=== PATIENT | male | born 1975 | race Caucasian/White ===

== ENCOUNTER 2017-07-27 07:18 | Emergency (ER) | payer BC ==
[2017-07-27] MEDS ORDERED: Ibuprofen 800 MG Tab PO ONE (07:35)
--- NOTE | 2017-07-27 07:35 | EDM.PDOC ---
ED HPI GENERAL MEDICAL PROBLEM - General Stated Complaint: LEFT ANKLE PAIN Time Seen by Provider: 07/27/17 07:24 Source of Information: Reports: Patient History Limitations: Reports: No Limitations - History of Present Illness INITIAL COMMENTS - FREE TEXT/NARRATIVE: History of present illness: []Patient rolled his ankle last night on the ice. He has swelling and pain over the lateral ankle and has pain with bearing any weight on it. Review of systems: As per history of present illness and below otherwise all systems reviewed and negative. Past medical history: As per history of present illness and as reviewed below otherwise noncontributory. Surgical history: As per history of present illness and as reviewed below otherwise noncontributory. Social history: No reported history of drug or alcohol abuse. Family history: As per history of present illness and as reviewed below otherwise noncontributory. Physical exam: General: Well developed, well nourished in NAD HEENT: Atraumatic, normocephalic, pupils reactive, negative for conjunctival pallor or scleral icterus, mucous membranes moist, throat clear, neck supple, nontender, trachea midline. Lungs: Clear to auscultation, breath sounds equal bilaterally, chest nontender. Heart: S1S2, regular, negative for clicks, rubs, or JVD. Abdomen: Soft, nondistended, nontender. Negative for masses or hepatosplenomegaly. Negative for costovertebral tenderness. Pelvis: Stable nontender. Genitourinary: Deferred. Rectal: Deferred. Extremities: Lateral malleolar swelling over the left ankle tender to light palpation of the skin. There is no open wound, negative for cords or calf pain. Neurovascular unremarkable. Neuro: Awake, alert, oriented. Cranial nerves II through XII unremarkable. Cerebellum unremarkable. Motor and sensory unremarkable throughout. Exam nonfocal. Diagnostics: []X-ray negative for fracture Therapeutics: []Motrin for pain, Aircast Impression: []Left ankle sprain Plan: []Ice elevate follow-up with PMD return if symptoms worsen Definitive disposition and diagnosis as appropriate pending reevaluation and review of above. Left Ankle Pain Score (Numeric/FACES): 3 - Related Data Allergies Allergy/AdvReac Type Severity Reaction Status Date / Time No Known Allergies Allergy Verified 07/27/17 07:31 Home Meds: Home Meds . [No Known Home Meds] 12/23/14 [History] Past Medical History - Infectious Disease History Infectious Disease History: Reports: Chicken Pox - Past Surgical History HEENT Surgical History: Reports: Naso-Sinus Surgery, Tonsillectomy Social & Family History - Family History Family Medical History: Noncontributory - Tobacco Use Smoking Status *Q: Never Smoker - Alcohol Use Days Per Week of Alcohol Use: 2 Number of Drinks Per Day: 7 Total Drinks Per Week: 14 - Recreational Drug Use Recreational Drug Use: No Drug Use in Last 12 Months: No Review of Systems - Review of Systems Review Of Systems: See Below (See history of present illness) ED EXAM, GENERAL - Physical Exam Exam: See Below (See history of present illness) Course - Vital Signs Last Recorded V/S: Last Vital Signs Temp 97.3 F 07/27/17 07:29 Pulse 90 07/27/17 07:29 Resp 18 07/27/17 07:29 BP 125/90 07/27/17 07:29 Pulse Ox 93 L 07/27/17 07:29 - Orders/Labs/Meds Orders: Active Orders 24 hr Category Date Time Status Ankle Min 3V Lt [CR] Stat Exams 07/27/17 07:35 Taken Meds: Medications Discontinued Medications Generic Name Dose Route Start Last Admin Trade Name Freq PRN Reason Stop Dose Admin Ibuprofen 800 mg 07/27/17 07:35 07/27/17 07:39 Motrin PO 07/27/17 07:36 800 mg ONETIME ONE Administration Departure - Departure Time of Disposition: 08:04 Disposition: Home, Self-Care 01 Condition: Good Clinical Impression: Left ankle sprain Qualifiers: Encounter type: initial encounter Involved ligament of ankle: unspecified ligament Qualified Code(s): S93.402A - Sprain of unspecified ligament of left ankle, initial encounter - Discharge Information Referrals: PCP,None [Primary Care Provider] - Additional Instructions: The following information is given to patients seen in the emergency department who are being discharged to home. This information is to outline your options for follow-up care. We provide all patients seen in our emergency department with a follow-up referral. The need for follow-up, as well as the timing and circumstances, are variable depending upon the specifics of your emergency department visit. If you don't have a primary care physician on staff, we will provide you with a referral. We always advise you to contact your personal physician following an emergency department visit to inform them of the circumstance of the visit and for follow-up with them and/or the need for any referrals to a consulting specialist. The emergency department will also refer you to a specialist when appropriate. This referral assures that you have the opportunity for follow-up care with a specialist. All of these measure are taken in an effort to provide you with optimal care, which includes your follow-up. Under all circumstances we always encourage you to contact your private physician who remains a resource for coordinating your care. When calling for follow-up care, please make the office aware that this follow-up is from your recent emergency room visit. If for any reason you are refused follow-up, please contact the Emergency Department at and asked to speak to the emergency department charge nurse. Ice, elevate, ibuprofen for pain, follow-up with primary care as needed return symptoms worsen or change. Primary Care [address] [place] [id number] - My Orders Last 24 Hours: My Active Orders 07/27/17 07:35 Ankle Min 3V Lt [CR] Stat - Assessment/Plan Last 24 Hours: My Active Orders 07/27/17 07:35 Ankle Min 3V Lt [CR] Stat
[2017-07-27 08:29] VITALS: BP 126/78
--- NOTE | 2017-07-27 13:35 | CR ---
EXAM DATE: 07/27/17 PATIENT'S AGE: 42 Patient: OCTAVIO DSOUZA Facility: [place], [place] Site . Site : 1975 Study: XRay Extremity Left ANKLE [id number]/6/2017 8:02:46 AM Ordering Physician: Davon Marsh Final Report: HISTORY: Left ankle pain. TECHNIQUE: Three views of the left ankle. COMPARISON: No prior. FINDINGS: There is no acute fracture or malalignment. Ankle mortise appears symmetric and maintained. Soft tissue swelling overlying the lateral malleolus. No radiopaque foreign body or soft tissue gas. IMPRESSION: 1. No acute fracture or malalignment. 2. Soft tissue swelling overlying the lateral malleolus. Dictated by Joseph Donis MD @ 07/27/2017 8:09:13 AM Dictated by: Joseph Donis MD @ 07/27/2017 08:09:19 (Electronic Signature) Report Signed by Proxy. YAW
== END 2017-07-27 08:28 | disposition home or self-care (01) ==
LOC: MW.ED 07:18
DX: S93.402A Sprain of unspecified ligament of left ankle, initial encounter (principal); X50.9XXA Other and unspecified overexertion or strenuous movements or postures, initial encounter
CPT/HCPCS: 73610; 99283; A9270

== ENCOUNTER 2017-11-03 19:32 | Day surgery (SDC) | payer BC ==
[2017-11-03] MEDS ORDERED: Glucagon,Human Recombinant 1 MG Vial IVPUSH ONE (19:44)
--- NOTE | 2017-11-03 19:49 | EDM.PDOC ---
ED HPI GENERAL MEDICAL PROBLEM - General Chief Complaint: ENT Problem Stated Complaint: FOOD STUCK IN THROAT Time Seen by Provider: 11/03/17 19:45 Source of Information: Reports: Patient History Limitations: Reports: No Limitations - History of Present Illness INITIAL COMMENTS - FREE TEXT/NARRATIVE: HISTORY AND PHYSICAL: History of present illness: Patient is a 42-year-old male who presents to the emergency room today with complaints of meat stuck in his throat. He states he has eating roast beef approximately one hour prior to arrival when he felt that he was unable to "get it down". He has had a similar episode of food bolus stuck in his esophagus which she had to have an EGD done, several years ago by Dr. Mooney. States since that time he has had frequent episodes but is usually able to get them down on his own. He states he is unable to swallow any liquids nor his saliva. Denies any difficulty breathing. Denies fever, chills, chest pain, shortness of breath. Denies any abdominal pain, nausea, vomiting or diarrhea/constipation. Review of systems: As per history of present illness and below otherwise all systems reviewed and negative. Past medical history: As per history of present illness and as reviewed below otherwise noncontributory. Surgical history: As per history of present illness and as reviewed below otherwise noncontributory. Social history: No reported history of drug or alcohol abuse. Family history: As per history of present illness and as reviewed below otherwise noncontributory. Physical exam: Gen.: Well-developed and well-nourished 42-year-old male. Alert and oriented. Nontoxic appearing and in no acute distress. HEENT: Atraumatic, normocephalic, pupils reactive, negative for conjunctival pallor or scleral icterus, mucous membranes moist, throat clear, neck supple, nontender, trachea midline. Lungs: Clear to auscultation, breath sounds equal bilaterally, chest nontender. No work of breathing. Heart: S1S2, regular rate and rhythm Abdomen: Soft, nondistended, nontender. Negative for masses or hepatosplenomegaly. Negative for costovertebral tenderness. Pelvis: Stable nontender. Genitourinary: Deferred. Rectal: Deferred. Extremities: Atraumatic, negative for cords or calf pain. Neurovascular unremarkable. Neuro: Awake, alert, oriented. Cranial nerves II through XII unremarkable. Cerebellum unremarkable. Motor and sensory unremarkable throughout. Exam nonfocal. While doing my physical examination the patient does have an emesis bag at his side which she is spitting his saliva into. He states he is unable to swallow his oral secretions. Apprehensive about using the IV glucagon because he states this "didn't work in the past". I did educate him on the steps needed prior to calling the general surgeon. He voices understanding and is agreeable to plan of care. His vital signs are stable and we'll continue to monitor. Patient is unable to swallow liquids or saliva post IV glucagon. The general surgeon will be called. 2024- Dr Fletcher was consulted on this case. Will come to see the patient Dr Fletcher here with patient. Crew called in for EGD. Diagnostics: [] Therapeutics: Glucogan IV Impression: Esophageal foreign body Plan: To OR for EGD per Dr Fletcher Definitive disposition and diagnosis as appropriate pending reevaluation and review of above. Onset: Today Duration: Hour(s): - Related Data Allergies Allergy/AdvReac Type Severity Reaction Status Date / Time No Known Allergies Allergy Verified 11/03/17 19:35 Home Meds: Home Meds . [No Known Home Meds] 12/23/14 [History] Past Medical History - Past Health History Medical/Surgical History: Denies Medical/Surgical History Cardiovascular History: Reports: Hypertension - Infectious Disease History Infectious Disease History: Reports: Chicken Pox - Past Surgical History HEENT Surgical History: Reports: Naso-Sinus Surgery, Tonsillectomy Social & Family History - Family History Family Medical History: Noncontributory - Tobacco Use Smoking Status *Q: Never Smoker - Alcohol Use Days Per Week of Alcohol Use: 2 Number of Drinks Per Day: 7 Total Drinks Per Week: 14 - Recreational Drug Use Recreational Drug Use: No Drug Use in Last 12 Months: No ED ROS ENT - Review of Systems Review Of Systems: ROS reveals no pertinent complaints other than HPI. ED EXAM, ENT - Physical Exam Exam: See Below (See dictation) Course - Vital Signs Last Recorded V/S: Last Vital Signs Temp 98.7 F 11/03/17 19:35 Pulse 75 11/03/17 19:35 Resp 20 11/03/17 19:35 BP 157/109 H 11/03/17 19:35 Pulse Ox 96 11/03/17 19:35 - Orders/Labs/Meds Orders: Active Orders 24 hr Category Date Time Status Communication Order [RC] STAT Care 11/03/17 20:17 Active Meds: Medications Discontinued Medications Generic Name Dose Route Start Last Admin Trade Name Tito PRN Reason Stop Dose Admin Glucagon 1 mg 11/03/17 19:44 11/03/17 20:02 Glucagen IVPUSH 11/03/17 19:45 1 mg ONETIME ONE Administration Departure - Departure Time of Disposition: 20:47 Disposition: Still A Patient 30 Clinical Impression: Esophageal foreign body Qualifiers: Encounter type: initial encounter Qualified Code(s): T18.108A - Unspecified foreign body in esophagus causing other injury, initial encounter - Discharge Information Referrals: PCP,Unknown [Primary Care Provider] - Forms: ED Department Discharge - My Orders Last 24 Hours: My Active Orders 11/03/17 20:17 Communication Order [RC] STAT - Assessment/Plan Last 24 Hours: My Active Orders 11/03/17 20:17 Communication Order [RC] STAT
--- NOTE | 2017-11-03 20:59 | PCM.HP ---
<Jamison Marino - Last Filed: 11/03/17 20:54> H&P History of Present Illness - General Date of Service: 11/03/17 Admit Problem/Dx: Esophageal foreign body Source of Information: Patient - History of Present Illness Initial Comments - Free Text/Narative: 42 y/o male presents to ED with esophageal foreign body. He was eating roast beef this evening and felt the sensation of it getting stuck. He presented to ED for this issue. He has a history of EGD for esophageal foreign body about 2 years ago. He has no other issues or concerns. Onset of Symptoms: Reports: Today Duration of Symptoms: Reports: Hour(s): - Related Data Allergies/Adverse Reactions: Allergies Allergy/AdvReac Type Severity Reaction Status Date / Time No Known Allergies Allergy Verified 11/03/17 19:35 Home Medications: Home Meds . [No Known Home Meds] 12/23/14 [History] Past Medical History - Past Health History Medical/Surgical History: Denies Medical/Surgical History Cardiovascular History: Reports: Hypertension Gastrointestinal History: Reports: Other (See Below) (history of esophageal foreign body a few years ago) - Infectious Disease History Infectious Disease History: Reports: Chicken Pox - Past Surgical History Head Surgeries/Procedures: Reports: Other (See Below) Other Head Surgeries/Procedures: tonsillectomy HEENT Surgical History: Reports: Naso-Sinus Surgery, Tonsillectomy Social & Family History - Family History Family Medical History: Noncontributory (grandfather had history of food obstruction of esophagus) - Tobacco Use Smoking Status *Q: Never Smoker - Alcohol Use Days Per Week of Alcohol Use: 2 Number of Drinks Per Day: 7 Total Drinks Per Week: 14 - Recreational Drug Use Recreational Drug Use: No Drug Use in Last 12 Months: No H&P Review of Systems - Review of Systems: Review Of Systems: See Below General: Reports: No Symptoms HEENT: Reports: No Symptoms Pulmonary: Reports: No Symptoms Cardiovascular: Reports: No Symptoms Gastrointestinal: Reports: Difficulty Swallowing Genitourinary: Reports: No Symptoms Musculoskeletal: Reports: No Symptoms Skin: Reports: No Symptoms Psychiatric: Reports: No Symptoms Neurological: Reports: No Symptoms Hematologic/Lymphatic: Reports: No Symptoms Immunologic: Reports: No Symptoms Exam - Exam Exam: See Below - Vital Signs Vital Signs: Last Vital Signs Temp 37.1 C 11/03/17 19:35 Pulse 75 11/03/17 19:35 Resp 20 11/03/17 19:35 BP 157/109 H 11/03/17 19:35 Pulse Ox 96 11/03/17 19:35 Weight: 440 lb 14.792 oz - Exam General: Alert, Oriented, Cooperative HEENT: EOMI Neck: Supple, Trachea Midline Lungs: Clear to Auscultation, Normal Respiratory Effort Cardiovascular: Regular Rate, Regular Rhythm GI/Abdominal Exam: Soft, Non-Tender, No Distention, No Mass Extremities: Normal Inspection Skin: Warm, Dry Neurological: Cranial Nerves Intact Neuro Extensive - Mental Status: Alert, Oriented x3, Normal Mood/Affect, Normal Cognition, Memory Intact Psychiatric: Alert, Normal Affect, Normal Mood *Q Meaningful Use (ADM) - VTE *Q VTE Criteria *Q: - Stroke *Q Stroke Criteria *Q: - AMI *Q AMI Criteria *Q: - Problem List (1) Esophageal foreign body SNOMED Code(s): 23155167 ICD Code: T18.108A - UNSP FOREIGN BODY IN ESOPHAGUS CAUSING OTH INJURY, INIT Status: Acute Priority: High Current Visit: Yes QualifierTitle: Encounter type: initial encounter Qualified Code(s): T18.108A - Unspecified foreign body in esophagus causing other injury, initial encounter Problem List Initiated/Reviewed/Updated: Yes Orders Last 24hrs: Active Orders 24 hr Category Date Time Status Communication Order [RC] STAT Care 11/03/17 20:17 Active Assessment/Plan Comment:: Risks, benefits, alternatives discussed. He has already failed trial of conservative mgmt with glucagon. Recommend EGD with all indicated procedures to attempt to alleviate the obstruction. Risks of bleeding and perforation discussed. <Mikel Fletcher - Last Filed: 11/03/17 21:06> Exam - Vital Signs Vital Signs: Last Vital Signs Temp 98.7 F 11/03/17 19:35 Pulse 75 11/03/17 19:35 Resp 20 11/03/17 19:35 BP 157/109 H 11/03/17 19:35 Pulse Ox 96 11/03/17 19:35 *Q Meaningful Use (ADM) - VTE *Q VTE Criteria *Q: - Stroke *Q Stroke Criteria *Q: - AMI *Q AMI Criteria *Q: - Problem List (1) Esophageal foreign body SNOMED Code(s): 31180172 ICD Code: T18.108A - UNSP FOREIGN BODY IN ESOPHAGUS CAUSING OTH INJURY, INIT Status: Acute Priority: High Current Visit: Yes Qualifiers: Encounter type: initial encounter Qualified Code(s): T18.108A - Unspecified foreign body in esophagus causing other injury, initial encounter Problem List Initiated/Reviewed/Updated: Yes Orders Last 24hrs: Active Orders 24 hr Category Date Time Status Communication Order [RC] STAT Care 11/03/17 20:17 Active Oxygen Therapy [RC] PRN Care 11/03/17 20:54 Active Vital Signs [RC] PER UNIT ROUTINE Care 11/03/17 20:54 Active Nothing per Oral After Midnight Diet [DIET] Diet 11/03/17 Dinner Active Lactated Ringers [Ringers, Lactated] 1,000 ml Med 11/03/17 21:00 Active IV ASDIRECTED Resuscitation Status Routine Resus Stat 11/03/17 20:53 Ordered Medication Orders Lactated Ringer's (Ringers, Lactated) 1,000 mls @ 125 mls/hr IV ASDIRECTED JOSHUA Assessment/Plan Comment:: Esophagogastroduodenoscopy with removal of esophageal foreign body and biopsy. The operative procedure, along with the risks, including, but not limited to, bleeding, perforation, and the need for surgery were discussed with the patient who voices understanding, offers no questions and wishes to proceed. Patient seen and examined with Dr. Marino. I agree with his assessment and plan.
[2017-11-03] MEDS ORDERED: Lactated Ringers 1,000 ML IV SCH ×2 (21:00→21:45)
--- NOTE | 2017-11-03 21:08 | PCM.PREANE ---
Preanesthetic Assessment - Anesthesia/Transfusion/Family Hx Anesthesia History: Prior Anesthesia Without Reaction Family History of Anesthesia Reaction: No Transfusion History: No Prior Transfusion(s) Intubation History: History of Difficulty Intubation - Review of Systems General: No Symptoms Pulmonary: No Symptoms Cardiovascular: No Symptoms Gastrointestinal: No Symptoms, Difficulty Swallowing, Other Neurological: No Symptoms Other: Reports: None - Physical Assessment NPO Status Date: 11/03/17 NPO Status Time: 07:00 O2 Sat by Pulse Oximetry: 96 Respiratory Rate: 20 Blood Pressure: 138/80 Vital Signs: Last Vital Signs Temp 37.1 C 11/03/17 19:35 Pulse 75 11/03/17 19:35 Resp 20 11/03/17 19:35 BP 157/109 H 11/03/17 19:35 Pulse Ox 96 11/03/17 19:35 Height: 1.73 m Weight: 200 kg ASA Class: 2E Mental Status: Alert & Oriented x3 Airway Class: Mallampati = 1 Dentition: Reports: Normal Dentition Thyro-Mental Finger Breadths: 4 Mouth Opening Finger Breadths: 3 ROM/Head Extension: Full Lungs: Clear to Auscultation Cardiovascular: Regular Rate - Allergies Allergies/Adverse Reactions: Allergies Allergy/AdvReac Type Severity Reaction Status Date / Time No Known Allergies Allergy Verified 11/03/17 19:35 - Blood Blood Available: No - Acknowledgements Anesthesia Type Planned: General Anesthesia Pt an Appropriate Candidate for the Planned Anesthesia: Yes Alternatives and Risks of Anesthesia Discussed w Pt/Guardian: Yes Pt/Guardian Understands and Agrees with Anesthesia Plan: Yes Additional Comments: Pt with stuck food bolus in esophgus. Same ~ 2 years ago. Discussed. All aspects explained, questions answered. Wishes to procede. Plan GAET with RSI PreAnesthesia Questionnaire - Past Health History Medical/Surgical History: Denies Medical/Surgical History Cardiovascular History: Reports: Hypertension Gastrointestinal History: Reports: Other (See Below) (history of esophageal foreign body a few years ago) - Infectious Disease History Infectious Disease History: Reports: Chicken Pox - Past Surgical History Head Surgeries/Procedures: Reports: Other (See Below) HEENT Surgical History: Reports: Naso-Sinus Surgery, Tonsillectomy - SUBSTANCE USE Smoking Status *Q: Never Smoker Days Per Week of Alcohol Use: 2 Number of Drinks Per Day: 7 Total Drinks Per Week: 14 Recreational Drug Use History: No - HOME MEDS Home Medications: Home Meds . [No Known Home Meds] 12/23/14 [History] - CURRENT (IN HOUSE) MEDS Current Meds: Current Medications Lactated Ringer's (Ringers, Lactated) 1,000 mls @ 125 mls/hr IV ASDIRECTED JOSHUA Discontinued Medications Glucagon (Glucagen) 1 mg IVPUSH ONETIME ONE Stop: 11/03/17 19:45 Last Admin: 11/03/17 20:02 Dose: 1 mg
[2017-11-03] MEDS ORDERED: Ondansetron 4 MG/2 ML SDV ONE (21:10)
[2017-11-03] MEDS ORDERED: Propofol 200 MG/20 ML SDV ONE (21:10)
[2017-11-03] MEDS ORDERED: Midazolam 1 MG/ML 2 ML SDV ONE (21:10)
[2017-11-03] MEDS ORDERED: fentaNYL 100 MCG/2 ML SDV ONE (21:10)
[2017-11-03] MEDS ORDERED: Ondansetron 4 MG Tab.DIS PO PRN (21:42)
--- NOTE | 2017-11-03 21:51 | PCM.OPNOTE ---
- General Post-Op/Procedure Note Date of Surgery/Procedure: 11/03/17 Operative Procedure(s): Esophagogastroduodenoscopy with removal of esophageal foreign body, and gastric biopsy Pre Op Diagnosis: Foreign body obstruction of the esophagus Post-Op Diagnosis: Foreign body obstruction of the esophagus. Mild chronic gastritis. Anesthesia Technique: General ET Tube (ASA IIE) Primary Surgeon: Mikel Fletcher Wastewater Supervisor: Jamison Marino Condition: Good Free Text/Narrative:: Dictation [id number] CPT CODE [id number]
--- NOTE | 2017-11-03 22:12 | PCM.POSTAN ---
POST ANESTHESIA ASSESSMENT - MENTAL STATUS Mental Status: Alert, Oriented - VITAL SIGNS Pulse Rate: 74 SaO2: 92 Resp Rate: 17 Blood Pressure: 121/87 Temperature: 97 C - RESPIRATORY Respiratory Status: Respiratory Rate WNL, Airway Patent, O2 Saturation Stable, Supplemental Oxygen Free Text/Narrative:: Sats 92-95% on 2L Doing well no problems noted - CARDIOVASCULAR CV Status: Pulse Rate WNL, Blood Pressure Stable - GASTROINTESTINAL GI Status: No Symptoms - PAIN Pain Score: 0 Free Text/Narrative:: Ready for discharge from PACU - POST OP HYDRATION Hydration Status: Adequate & Stable
--- NOTE | 2017-11-03 22:22 | PCM48HPAN ---
Post Anesthesia Note - EVALUATION WITHIN 48HRS OF ANESTHETIC Vital Signs in Normal Range: Yes Patient Participated in Evaluation: Yes Respiratory Function Stable: Yes Airway Patent: Yes (Throat sore) Cardiovascular Function Stable: Yes Hydration Status Stable: Yes Pain Control Satisfactory: Yes Nausea and Vomiting Control Satisfactory: Yes Mental Status Recovered: Yes Pulse Rate: 74 Resp Rate: 17 Temperature: 97 C Blood Pressure: 121/87 - COMMENTS/OBSERVATIONS Free Text/Narrative:: Good condition. Awaiting discharge.
[2017-11-03 22:58] VITALS: BP 123/79
--- NOTE | 2017-11-04 00:52 | OR ---
SURGEON: Mikel Fletcher M.D. DATE OF PROCEDURE: 11/03/2017 OPERATION PERFORMED: Esophagogastroduodenoscopy with removal of esophageal foreign body and gastric biopsy. COLLAR TACKER: Dr. Marino, PGY3. ANESTHESIA: General endotracheal. ASA CLASSIFICATION: IIE. PREOPERATIVE DIAGNOSIS: Foreign body obstruction of the esophagus. POSTOPERATIVE DIAGNOSES: 1. Foreign body obstruction of the esophagus. 2. Mild gastritis. DESCRIPTION OF PROCEDURE: The patient was taken to the operating room and placed on the operating table in supine position. Time-out was called for appropriate identification of the patient and procedure. Following satisfactory attainment of general endotracheal anesthesia, the bite-block was placed between the patient's teeth. The gastroscope was inserted through the bite-block into the oropharynx and advanced without difficulty into the esophagus. I was able to push the foreign body through the esophagus without any difficulty. The gastroscope was then further inserted through the stomach into the duodenum and examination now carried out in a retrograde fashion. The duodenum shows no acute inflammatory changes or ulcerations. The stomach does show a mild appearing chronic gastritis. No acute ulcerations were noted. Antral biopsies were obtained. The gastroscope was retroflexed to visualize the proximal stomach. The foreign body could clearly be seen in the stomach. No obvious hiatal hernia was noted. No tumors or ulcers were noted in the cardia. The gastroscope was then straightened and slowly withdrawn. There was an area of inflammation in the distal esophagus just above the esophageal hiatus that is quite erythematous. There was no obvious resistance to passage of the scope as it was inserted. No obvious stricture noted. The proximal esophagus demonstrated good contractility. Vocal cords were not visualized as the patient was intubated. The gastroscope was then removed with the patient having tolerated the procedure well. Following emergence from anesthesia and extubation, he was taken to recovery room in stable condition. AILIN / CARLOS /[id number]
== END 2017-11-03 22:45 | disposition home or self-care (01) ==
LOC: MW.ED 19:32 → MW.SDS 20:55 → MW.MS 21:55 → MW.SDS 22:45
PROVIDERS: ATTEND Surgery
DX: K29.50 Unspecified chronic gastritis without bleeding (principal); T18.128A Food in esophagus causing other injury, initial encounter; I10 Essential (primary) hypertension
CPT/HCPCS: 43239; 43247; 96374; 99284; J1610; J2250; J2405; J3010; 00731; 88305; 88312; J2704

== ENCOUNTER 2017-12-25 17:51 | Emergency (ER) | payer BC ==
[2017-12-25] MEDS ORDERED: Ondansetron 4 MG/2 ML SDV IVPUSH ONE (17:55)
[2017-12-25] MEDS ORDERED: Aspirin 81 MG Tab.Chew PO ONE (17:55)
[2017-12-25] MEDS ORDERED: Sodium Chloride 0.9% 1,000 ML IV ONE (17:55)
[2017-12-25] MEDS ORDERED: Pantoprazole 40 MG Vial IVPUSH ONE (17:59)
[2017-12-25] MEDS ORDERED: LORazepam 2 MG/ML SDV IVPUSH ONE (18:07)
--- NOTE | 2017-12-25 18:14 | EDM.PDOC ---
ED HPI GENERAL MEDICAL PROBLEM - General Chief Complaint: Chest Pain Stated Complaint: HEART ATTACK Time Seen by Provider: 12/25/17 18:11 Source of Information: Reports: Patient - History of Present Illness INITIAL COMMENTS - FREE TEXT/NARRATIVE: HISTORY AND PHYSICAL: History of present illness: [ Patient presents with a complaint of "heart attack" Today he was planting trees 10-12 trees 3 feet in height, he drilled holes with a bobcat abdomen was planting the trees lifting shoveling etc. developed acute sharp 8 out of 10 pain over left pack Below left chest no radiation arm neck or jaw no diaphoresis no shortness of breath. Pain is present for 10 minutes here per presents to the emergency room very anxious but pain has resolved I can reproduce pain with palpation just left of the lower sternum, patient states this is the pain that he was having can also reproduce pain with forward extension and lateral extension of his left arm No fever nausea vomiting chills sweats] Review of systems: As per history of present illness and below otherwise all systems reviewed and negative. Past medical history: As per history of present illness and as reviewed below otherwise noncontributory. Surgical history: As per history of present illness and as reviewed below otherwise noncontributory. Social history: No reported history of drug or alcohol abuse. Family history: As per history of present illness and as reviewed below otherwise noncontributory. Physical exam: HEENT: Atraumatic, normocephalic, pupils reactive, negative for conjunctival pallor or scleral icterus, mucous membranes moist, throat clear, neck supple, nontender, trachea midline. Lungs: Clear to auscultation, breath sounds equal bilaterally, chest nontender. Heart: S1S2, regular, negative for clicks, rubs, or JVD. Abdomen: Soft, nondistended, nontender. Negative for masses or hepatosplenomegaly. Negative for costovertebral tenderness. Pelvis: Stable nontender. Genitourinary: Deferred. Rectal: Deferred. Extremities: Atraumatic, negative for cords or calf pain. Neurovascular unremarkable. Neuro: Awake, alert, oriented. Cranial nerves II through XII unremarkable. Cerebellum unremarkable. Motor and sensory unremarkable throughout. Exam nonfocal. Diagnostics: [CBC CMP UA troponin lipase EKG on arrival]-sinus tachycardia 126 Chest 1 view EKG Therapeutics: [1 L normal saline bolus Proton X 80 mg IV Zofran 4 mg IV Ativan 1 milligram IV Aspirin 324 mg chewable ] Impression: [ reproducible chest wall pain Anxiety about health Mild dehydration] Definitive disposition and diagnosis as appropriate pending reevaluation and review of above. chest Pain Score (Numeric/FACES): 2 - Related Data Allergies Allergy/AdvReac Type Severity Reaction Status Date / Time No Known Allergies Allergy Verified 11/03/17 19:35 Home Meds: Home Meds . [No Known Home Meds] 12/23/14 [History] Past Medical History - Past Health History Medical/Surgical History: Denies Medical/Surgical History Cardiovascular History: Reports: Hypertension Gastrointestinal History: Reports: Other (See Below) (history of esophageal foreign body a few years ago) - Infectious Disease History Infectious Disease History: Reports: Chicken Pox - Past Surgical History Head Surgeries/Procedures: Reports: Other (See Below) HEENT Surgical History: Reports: Naso-Sinus Surgery, Tonsillectomy Social & Family History - Family History Family Medical History: Noncontributory (grandfather had history of food obstruction of esophagus) - Tobacco Use Smoking Status *Q: Never Smoker - Alcohol Use Days Per Week of Alcohol Use: 2 Number of Drinks Per Day: 7 Total Drinks Per Week: 14 - Recreational Drug Use Recreational Drug Use: No Drug Use in Last 12 Months: No ED ROS GENERAL - Review of Systems Review Of Systems: ROS reveals no pertinent complaints other than HPI. ED EXAM, GENERAL - Physical Exam Exam: See Below Course - Vital Signs Last Recorded V/S: Last Vital Signs Temp 98.7 F 12/25/17 18:02 Pulse 138 H 12/25/17 18:02 Resp 20 12/25/17 18:02 BP 160/93 H 12/25/17 18:02 Pulse Ox 96 12/25/17 18:02 - Orders/Labs/Meds Orders: Active Orders 24 hr Category Date Time Status EKG 12 Lead [EKG Documentation Completion] [RC] STAT Care 12/25/17 18:01 Active EKG Documentation Completion [RC] STAT Care 12/25/17 18:08 Active Chest 1V Frontal [CR] Stat Exams 12/25/17 17:59 Ordered CKMB [CHEM] Stat Lab 12/25/17 18:00 Received COMPREHENSIVE METABOLIC PN,CMP [CHEM] Stat Lab 12/25/17 18:00 Received CREATINE KINASE,CK [CHEM] Stat Lab 12/25/17 18:00 Received LIPASE [CHEM] Stat Lab 12/25/17 18:00 Received TROPONIN I [CHEM] Stat Lab 12/25/17 18:00 Received UA W/MICROSCOPIC [URIN] Stat Lab 12/25/17 17:55 Ordered Sodium Chloride 0.9% [Normal Saline] 1,000 ml Med 12/25/17 17:55 Active IV STAT Medication Orders Sodium Chloride (Normal Saline) 1,000 mls @ 999 mls/hr IV STAT ONE Stop: 12/25/17 18:55 Last Admin: 12/25/17 18:04 Dose: 999 mls/hr Labs: Laboratory Tests 12/25/17 Range/Units 18:00 WBC 10.87 (4.0-11.0) K/uL RBC 5.45 (4.50-5.90) M/uL Hgb 16.0 (13.0-17.0) g/dL Hct 46.1 (38.0-50.0) % MCV 84.6 (80.0-98.0) fL MCH 29.4 (27.0-32.0) pg MCHC 34.7 (31.0-37.0) g/dL RDW Std Deviation 40.5 (28.0-62.0) fl RDW Coeff of Ambar 13 (11.0-15.0) % Plt Count 304 (150-400) K/uL MPV 9.50 (7.40-12.00) fL Neut % (Auto) 50.1 (48.0-80.0) % Lymph % (Auto) 37.1 (16.0-40.0) % [place] % (Auto) 9.4 (0.0-15.0) % Eos % (Auto) 2.9 (0.0-7.0) % Baso % (Auto) 0.5 (0.0-1.5) % Neut # (Auto) 5.5 (1.4-5.7) K/uL Lymph # (Auto) 4.0 H (0.6-2.4) K/uL [place] # (Auto) 1.0 H (0.0-0.8) K/uL Eos # (Auto) 0.3 (0.0-0.7) K/uL Baso # (Auto) 0.1 (0.0-0.1) K/uL Nucleated RBC % 0.0 /100WBC Nucleated RBCs # 0 K/uL Meds: Medications Generic Name Dose Route Start Last Admin Trade Name Tito PRN Reason Stop Dose Admin Sodium Chloride 1,000 mls @ 999 mls/hr 12/25/17 17:55 12/25/17 18:04 Normal Saline IV 12/25/17 18:55 999 mls/hr STAT ONE Administration Discontinued Medications Generic Name Dose Route Start Last Admin Trade Name Tito PRN Reason Stop Dose Admin Aspirin 324 mg 12/25/17 17:55 12/25/17 18:16 Aspirin PO 12/25/17 17:56 324 mg ONETIME ONE Administration Lorazepam 1 mg 12/25/17 18:07 12/25/17 18:30 Ativan IVPUSH 12/25/17 18:08 1 mg ONETIME ONE Administration Ondansetron HCl 8 mg 12/25/17 17:55 12/25/17 18:17 Zofran IVPUSH 12/25/17 17:56 8 mg ONETIME ONE Administration Pantoprazole Sodium 80 mg 12/25/17 17:59 12/25/17 18:21 Protonix Iv IVPUSH 12/25/17 18:00 80 mg .BOLUS ONE Administration Departure - Departure Time of Disposition: 18:32 Disposition: Home, Self-Care 01 Condition: Good Clinical Impression: Chest wall pain, Anxiety about health, Dehydration - Discharge Information Forms: ED Department Discharge Additional Instructions: The following information is given to patients seen in the emergency department who are being discharged to home. This information is to outline your options for follow-up care. We provide all patients seen in our emergency department with a follow-up referral. The need for follow-up, as well as the timing and circumstances, are variable depending upon the specifics of your emergency department visit. If you don't have a primary care physician on staff, we will provide you with a referral. We always advise you to contact your personal physician following an emergency department visit to inform them of the circumstance of the visit and for follow-up with them and/or the need for any referrals to a consulting specialist. The emergency department will also refer you to a specialist when appropriate. This referral assures that you have the opportunity for follow-up care with a specialist. All of these measure are taken in an effort to provide you with optimal care, which includes your follow-up. Under all circumstances we always encourage you to contact your private physician who remains a resource for coordinating your care. When calling for follow-up care, please make the office aware that this follow-up is from your recent emergency room visit. If for any reason you are refused follow-up, please contact the [facility] emergency department at and asked to speak to the emergency department charge nurse. - My Orders Last 24 Hours: My Active Orders 12/25/17 17:55 UA W/MICROSCOPIC [URIN] Stat Sodium Chloride 0.9% [Normal Saline] 1,000 ml IV STAT 12/25/17 17:59 Chest 1V Frontal [CR] Stat 12/25/17 18:00 CKMB [CHEM] Stat COMPREHENSIVE METABOLIC PN,CMP [CHEM] Stat CREATINE KINASE,CK [CHEM] Stat LIPASE [CHEM] Stat TROPONIN I [CHEM] Stat 12/25/17 18:01 EKG 12 Lead [EKG Documentation Completion] [RC] STAT 12/25/17 18:08 EKG Documentation Completion [RC] STAT - Assessment/Plan Last 24 Hours: My Active Orders 12/25/17 17:55 UA W/MICROSCOPIC [URIN] Stat Sodium Chloride 0.9% [Normal Saline] 1,000 ml IV STAT 12/25/17 17:59 Chest 1V Frontal [CR] Stat 12/25/17 18:00 CKMB [CHEM] Stat COMPREHENSIVE METABOLIC PN,CMP [CHEM] Stat CREATINE KINASE,CK [CHEM] Stat LIPASE [CHEM] Stat TROPONIN I [CHEM] Stat 12/25/17 18:01 EKG 12 Lead [EKG Documentation Completion] [RC] STAT 12/25/17 18:08 EKG Documentation Completion [RC] STAT
[2017-12-25 18:37] LABS: CHLORIDE,CL 104 mmol/L (98-107); SODIUM,NA 141 mmol/L (136-148)
[2017-12-25 23:54] VITALS: BP 121/68
--- NOTE | 2017-12-26 13:36 | CR ---
EXAM DATE: 12/25/17 PATIENT'S AGE: 42 Patient: OCTAVIO DSOUZA Facility: [place], [place] Site . Site : 1975 Study: XRay Chest [id number]/6/2018 6:52:43 PM Ordering Physician: Doctor Liu Final Report: INDICATION: Pain. Shortness of breath. TECHNIQUE: AP portable chest x-ray. FINDINGS: Pulmonary vascularity in the upper lungs is upper limits of normal. Heart size normal. Shallow inspiration. Lungs clear without infiltrate or consolidation. Chest otherwise unremarkable. Dictated by Jonathan Lawrence MD @ Dec 25 2017 7:18PM (Electronic Signature) Report Signed by Proxy. YAW
== END 2017-12-25 19:50 | disposition home or self-care (01) ==
LOC: MW.ED 17:51
DX: R07.89 Other chest pain (principal); E86.0 Dehydration; F41.8 Other specified anxiety disorders; I10 Essential (primary) hypertension
CPT/HCPCS: 71045; 80053; 82550; 82553; 83690; 84484; 85025; 93005; 96361; 96374; 96375; 99285; A9270; C9113; J2060; J2405; J7040; 99284

== ENCOUNTER 2019-04-12 19:54 | Day surgery (SDC) | payer BC ==
[2019-04-12] MEDS ORDERED: Glucagon,Human Recombinant 1 MG Vial IVPUSH ONE (20:18)
--- NOTE | 2019-04-12 20:18 | EDM.PDOC ---
ED HPI GENERAL MEDICAL PROBLEM - General Chief Complaint: ENT Problem Stated Complaint: FOOD STUCK IN THROAT Time Seen by Provider: 04/12/19 20:17 Source of Information: Reports: Patient History Limitations: Reports: No Limitations - History of Present Illness INITIAL COMMENTS - FREE TEXT/NARRATIVE: HISTORY AND PHYSICAL: History of present illness: Patient is a 43-year-old male presents to the ED with complaint of food stuck in his throat. He states he was eating a steak for dinner tonight and piece in lodged in his throat. He has not been able to swallow anything since and is spitting his saliva. He can feel the food stuck and causing some discomfort. He has a history of this and has needed EGD for food bolus in the past. Review of systems: As per history of present illness and below otherwise all systems reviewed and negative. Past medical history: As per history of present illness and as reviewed below otherwise noncontributory. Surgical history: As per history of present illness and as reviewed below otherwise noncontributory. Social history: No reported history of drug or alcohol abuse. Family history: As per history of present illness and as reviewed below otherwise noncontributory. Physical exam: General: Patient sitting comfortably in no acute distress and nontoxic appearing HEENT: Atraumatic, normocephalic, pupils reactive, negative for conjunctival pallor or scleral icterus, mucous membranes moist, throat clear, neck supple, nontender, trachea midline. No meningeal signs. Lungs: Clear to auscultation, breath sounds equal bilaterally, chest nontender. Heart: S1S2, regular, negative for clicks, rubs, or overt murmur. Abdomen: Soft, nondistended, nontender. Negative for masses or hepatosplenomegaly. Negative for costovertebral tenderness. No rigidity, rebound , guarding. Pelvis: Stable nontender. Genitourinary: Deferred. Rectal: Deferred. Extremities: Atraumatic, negative for cords or calf pain. Neurovascular unremarkable. Neuro: Awake, alert, oriented. Cranial nerves II through XII unremarkable. Cerebellum unremarkable. Motor and sensory unremarkable throughout. Exam nonfocal. Notes: Diagnostics: CBC, CMP Therapeutics: [] Prescriptions: Impression: Esophageal food bolus Plan: Dr. Carlson consulted, she will take the patient to the OR for EGD. Definitive disposition and diagnosis as appropriate pending reevaluation and review of above. - Related Data Allergies Allergy/AdvReac Type Severity Reaction Status Date / Time No Known Allergies Allergy Verified 11/03/17 19:35 Home Meds: Home Meds . [No Known Home Meds] 12/23/14 [History] Past Medical History - Past Health History Medical/Surgical History: Denies Medical/Surgical History Cardiovascular History: Reports: Hypertension Gastrointestinal History: Reports: Other (See Below) - Infectious Disease History Infectious Disease History: Reports: Chicken Pox - Past Surgical History Head Surgeries/Procedures: Reports: Other (See Below) HEENT Surgical History: Reports: Naso-Sinus Surgery, Tonsillectomy Social & Family History - Family History Family Medical History: Noncontributory - Tobacco Use Smoking Status *Q: Never Smoker Second Hand Smoke Exposure: No - Caffeine Use Caffeine Use: Reports: None - Recreational Drug Use Recreational Drug Use: No ED ROS ENT - Review of Systems Review Of Systems: ROS reveals no pertinent complaints other than HPI. ED EXAM, ENT - Physical Exam Exam: See Below (see dictation) Course - Vital Signs Last Recorded V/S: Last Vital Signs Temp 96.9 F 04/12/19 20:04 Pulse 96 04/12/19 20:04 Resp 16 04/12/19 20:04 BP 141/91 H 04/12/19 20:04 Pulse Ox 98 04/12/19 20:04 - Orders/Labs/Meds Orders: Active Orders 24 hr Category Date Time Status Patient Status [ADT] Routine ADT 04/12/19 20:35 Active Antiembolic Devices [RC] PER UNIT ROUTINE Care 04/12/19 20:36 Active Verify Patient Consent Obtain [RC] ASDIRECTED Care 04/12/19 20:35 Active CBC WITH AUTO DIFF [HEME] Stat Lab 04/12/19 20:19 Ordered COMPREHENSIVE METABOLIC PN,CMP [CHEM] Stat Lab 04/12/19 20:19 Ordered Lactated Ringers [Ringers, Lactated] 1,000 ml Med 04/12/19 20:45 Active IV ASDIRECTED Sodium Chloride 0.9% [Normal Saline] Med 04/12/19 20:35 Active 10 ml IV ASDIRECTED PRN Sodium Chloride 0.9% [Saline Flush] Med 04/12/19 20:19 Ordered 10 ml FLUSH ASDIRECTED PRN Sodium Chloride 0.9% [Saline Flush] Med 04/12/19 20:35 Active 10 ml FLUSH ASDIRECTED PRN Sodium Chloride 0.9% [Saline Flush] Med 04/12/19 20:19 Ordered 2.5 ml FLUSH ASDIRECTED PRN Sodium Chloride 0.9% [Saline Flush] Med 04/12/19 20:35 Active 2.5 ml FLUSH ASDIRECTED PRN Peripheral IV Insertion Adult [OM.PC] Routine Oth 04/12/19 20:35 Ordered Saline Lock Insert [OM.PC] Stat Oth 04/12/19 20:19 Ordered Sequential Compression Device [OM.PC] Routine Oth 04/12/19 20:35 Ordered Resuscitation Status Routine Resus Stat 04/12/19 20:35 Ordered Medication Orders Lactated Ringer's (Ringers, Lactated) 1,000 mls @ 125 mls/hr IV ASDIRECTED JOSHUA Sodium Chloride (Saline Flush) 10 ml FLUSH ASDIRECTED PRN PRN Reason: Keep Vein Open Sodium Chloride (Saline Flush) 2.5 ml FLUSH ASDIRECTED PRN PRN Reason: Keep Vein Open Sodium Chloride (Saline Flush) 10 ml FLUSH ASDIRECTED PRN PRN Reason: Keep Vein Open Sodium Chloride (Saline Flush) 2.5 ml FLUSH ASDIRECTED PRN PRN Reason: Keep Vein Open Sodium Chloride (Normal Saline) 10 ml IV ASDIRECTED PRN PRN Reason: IV Use Meds: Medications Generic Name Dose Route Start Last Admin Trade Name Freq PRN Reason Stop Dose Admin Lactated Ringer's 1,000 mls @ 125 mls/hr 04/12/19 20:45 Ringers, Lactated IV ASDIRECTED JOSHUA Sodium Chloride 10 ml 04/12/19 20:19 Saline Flush FLUSH ASDIRECTED PRN Keep Vein Open Sodium Chloride 2.5 ml 04/12/19 20:19 Saline Flush FLUSH ASDIRECTED PRN Keep Vein Open Sodium Chloride 10 ml 04/12/19 20:35 Saline Flush FLUSH ASDIRECTED PRN Keep Vein Open Sodium Chloride 2.5 ml 04/12/19 20:35 Saline Flush FLUSH ASDIRECTED PRN Keep Vein Open Sodium Chloride 10 ml 04/12/19 20:35 Normal Saline IV ASDIRECTED PRN IV Use Discontinued Medications Generic Name Dose Route Start Last Admin Trade Name Freq PRN Reason Stop Dose Admin Glucagon 1 mg 04/12/19 20:18 Glucagen IVPUSH 04/12/19 20:19 ONETIME ONE Departure - Departure Time of Disposition: 20:44 Disposition: Still A Patient 30 Condition: Good Clinical Impression: Esophageal obstruction due to food impaction - Discharge Information Referrals: Jakob Boss MD [Primary Care Provider] - Forms: ED Department Discharge - My Orders Last 24 Hours: My Active Orders 04/12/19 20:19 CBC WITH AUTO DIFF [HEME] Stat COMPREHENSIVE METABOLIC PN,CMP [CHEM] Stat Sodium Chloride 0.9% [Saline Flush] 10 ml FLUSH ASDIRECTED PRN Sodium Chloride 0.9% [Saline Flush] 2.5 ml FLUSH ASDIRECTED PRN Saline Lock Insert [OM.PC] Stat - Assessment/Plan Last 24 Hours: My Active Orders 04/12/19 20:19 CBC WITH AUTO DIFF [HEME] Stat COMPREHENSIVE METABOLIC PN,CMP [CHEM] Stat Sodium Chloride 0.9% [Saline Flush] 10 ml FLUSH ASDIRECTED PRN Sodium Chloride 0.9% [Saline Flush] 2.5 ml FLUSH ASDIRECTED PRN Saline Lock Insert [OM.PC] Stat
[2019-04-12] MEDS ORDERED: Sodium Chloride 0.9% 2.5 ML Syringe FLUSH PRN ×2 (20:19→20:35)
[2019-04-12] MEDS ORDERED: Sodium Chloride 0.9% 10 ML Syringe FLUSH PRN ×2 (20:19→20:35)
[2019-04-12] MEDS ORDERED: Sodium Chloride 0.9% 10 ML SDV IV PRN (20:35)
--- NOTE | 2019-04-12 20:35 | PCM.HP.2 ---
H&P History of Present Illness - General Date of Service: 04/12/19 Source of Information: Patient History Limitations: Reports: No Limitations - History of Present Illness Initial Comments - Free Text/Narative: Patient is a 43 year old male with a history of GERD and previous esophageal obstruction who presents with another obstruction. He was eating steak tonight when he felt it get stuck. He is unable to swallow spit. He tried drinking coke with no relief. His last EGD was last year. No abdominal pain. No SOB. - Related Data Allergies/Adverse Reactions: Allergies Allergy/AdvReac Type Severity Reaction Status Date / Time No Known Allergies Allergy Verified 11/03/17 19:35 Home Medications: Home Meds . [No Known Home Meds] 12/23/14 [History] Past Medical History - Past Health History Medical/Surgical History: Denies Medical/Surgical History Cardiovascular History: Reports: Hypertension Gastrointestinal History: Reports: Other (See Below) - Infectious Disease History Infectious Disease History: Reports: Chicken Pox - Past Surgical History Head Surgeries/Procedures: Reports: Other (See Below) HEENT Surgical History: Reports: Naso-Sinus Surgery, Tonsillectomy Social & Family History - Family History Family Medical History: Noncontributory - Tobacco Use Smoking Status *Q: Never Smoker Second Hand Smoke Exposure: No - Caffeine Use Caffeine Use: Reports: None - Recreational Drug Use Recreational Drug Use: No H&P Review of Systems - Review of Systems: Review Of Systems: ROS reveals no pertinent complaints other than HPI. Exam - Exam Exam: See Below - Vital Signs Vital Signs: Last Vital Signs Temp 36.1 C 04/12/19 20:04 Pulse 96 04/12/19 20:04 Resp 16 04/12/19 20:04 BP 141/91 H 04/12/19 20:04 Pulse Ox 98 04/12/19 20:04 Weight: 88.451 kg - Exam General: Alert, Oriented HEENT: Conjunctiva Clear, EACs Clear, EOMI, Hearing Intact, Mucosa Moist & [place] , Nares Patent, Posterior Pharynx Clear, Pupils Equal, Pupils Reactive Neck: Supple, Trachea Midline Lungs: Clear to Auscultation, Normal Respiratory Effort Cardiovascular: Regular Rate, Regular Rhythm GI/Abdominal Exam: Soft, Non-Tender, No Distention, No Mass - Problem List (1) Esophageal foreign body SNOMED Code(s): 55533681 ICD Code: T18.108A - UNSP FOREIGN BODY IN ESOPHAGUS CAUSING OTH INJURY, INIT Status: Acute Current Visit: No Problem List Initiated/Reviewed/Updated: Yes Orders Last 24hrs: Active Orders 24 hr Category Date Time Status CBC WITH AUTO DIFF [HEME] Stat Lab 04/12/19 20:19 Ordered COMPREHENSIVE METABOLIC PN,CMP [CHEM] Stat Lab 04/12/19 20:19 Ordered Sodium Chloride 0.9% [Saline Flush] Med 04/12/19 20:19 Active 10 ml FLUSH ASDIRECTED PRN Sodium Chloride 0.9% [Saline Flush] Med 04/12/19 20:19 Active 2.5 ml FLUSH ASDIRECTED PRN Saline Lock Insert [OM.PC] Stat Oth 04/12/19 20:19 Ordered Medication Orders Sodium Chloride (Saline Flush) 10 ml FLUSH ASDIRECTED PRN PRN Reason: Keep Vein Open Sodium Chloride (Saline Flush) 2.5 ml FLUSH ASDIRECTED PRN PRN Reason: Keep Vein Open Assessment/Plan Comment:: I discussed the need for an EGD with food bolus extraction. The patient and I discussed the procedure, expected perioperative course and risks including bleeding or perforation. He verbalized understanding and wishes to proceed.
[2019-04-12] MEDS ORDERED: Lactated Ringers 1,000 ML IV SCH (20:45)
[2019-04-12 21:10] LABS: CHLORIDE,CL 103 mmol/L (98-107); SODIUM,NA 142 mmol/L (136-148)
[2019-04-12] MEDS ORDERED: Rocuronium 100 MG/10 ML Syringe ONE (21:12)
[2019-04-12] MEDS ORDERED: Lidocaine 2% 100 MG/5 ML Syringe ONE (21:12)
[2019-04-12] MEDS ORDERED: fentaNYL 100 MCG/2 ML SDV ONE (21:13)
[2019-04-12] MEDS ORDERED: Propofol 200 MG/20 ML SDV ONE (21:13)
--- NOTE | 2019-04-12 22:00 | PCM.OPNOTE ---
- General Post-Op/Procedure Note Date of Surgery/Procedure: 04/12/19 Operative Procedure(s): Diagnostic EGD with food disimpaction Findings: Large piece of steak impacted at the [place]. Esophagitis and mild stricture at that level. Pre Op Diagnosis: Food bolus impaction Post-Op Diagnosis: esophagitis, esophageal stricture Anesthesia Technique: General ET Tube Primary Surgeon: Ruby Carlson Condition: Fair
--- NOTE | 2019-04-12 22:09 | PCM.PREANE ---
Preanesthetic Assessment - Procedure Proposed Procedure: EGD with Foreign Body Removal - Anesthesia/Transfusion/Family Hx Anesthesia History: Prior Anesthesia Without Reaction Family History of Anesthesia Reaction: No Transfusion History: No Prior Transfusion(s) Intubation History: History of Difficulty Intubation - Review of Systems General: No Symptoms Pulmonary: No Symptoms, Other (Head cold) Cardiovascular: No Symptoms Gastrointestinal: No Symptoms, Other (Hx of untreated GERD) Neurological: No Symptoms Other: Reports: None - Physical Assessment NPO Status Date: 04/12/19 (Full stomach) Vital Signs: Last Vital Signs Temp 36.9 C 04/12/19 21:58 Pulse 91 04/12/19 21:58 Resp 14 04/12/19 21:58 BP 132/87 04/12/19 21:58 Pulse Ox 95 04/12/19 21:58 Height: 5 ft 8 in Weight: 88.451 kg ASA Class: 2E Mental Status: Alert & Oriented x3 Dentition: Reports: Normal Dentition ROM/Head Extension: Full Lungs: Clear to Auscultation, Normal Respiratory Effort Cardiovascular: Regular Rate, Regular Rhythm - Lab Values: Laboratory Last Values WBC 7.56 K/uL (4.0-11.0) 04/12/19 20:36 RBC 5.06 M/uL (4.50-5.90) 04/12/19 20:36 Hgb 15.0 g/dL (13.0-17.0) 04/12/19 20:36 Hct 43.6 % (38.0-50.0) 04/12/19 20:36 MCV 86.2 fL (80.0-98.0) 04/12/19 20:36 MCH 29.6 pg (27.0-32.0) 04/12/19 20:36 MCHC 34.4 g/dL (31.0-37.0) 04/12/19 20:36 RDW Std Deviation 40.8 fl (28.0-62.0) 04/12/19 20:36 RDW Coeff of Ambar 13 % (11.0-15.0) 04/12/19 20:36 Plt Count 245 K/uL (150-400) 04/12/19 20:36 MPV 9.70 fL (7.40-12.00) 04/12/19 20:36 Neut % (Auto) 52.9 % (48.0-80.0) 04/12/19 20:36 Lymph % (Auto) 30.0 % (16.0-40.0) 04/12/19 20:36 Crosby % (Auto) 12.2 % (0.0-15.0) 04/12/19 20:36 Eos % (Auto) 4.5 % (0.0-7.0) 04/12/19 20:36 Baso % (Auto) 0.4 % (0.0-1.5) 04/12/19 20:36 Neut # (Auto) 4.0 K/uL (1.4-5.7) 04/12/19 20:36 Lymph # (Auto) 2.3 K/uL (0.6-2.4) 04/12/19 20:36 Crosby # (Auto) 0.9 K/uL (0.0-0.8) H 04/12/19 20:36 Eos # (Auto) 0.3 K/uL (0.0-0.7) 04/12/19 20:36 Baso # (Auto) 0.0 K/uL (0.0-0.1) 04/12/19 20:36 Nucleated RBC % 0.0 /100WBC 04/12/19 20:36 Nucleated RBCs # 0 K/uL 04/12/19 20:36 Sodium 142 mmol/L (136-148) 04/12/19 20:36 Potassium 3.9 mmol/L (3.5-5.1) 04/12/19 20:36 Chloride 103 mmol/L (98-107) 04/12/19 20:36 Carbon Dioxide 23.8 mmol/L (21.0-32.0) 04/12/19 20:36 BUN 17 mg/dL (7.0-18.0) 04/12/19 20:36 Creatinine 1.1 mg/dL (0.8-1.3) 04/12/19 20:36 Est Cr Clr Drug Dosing 82.91 mL/min 04/12/19 20:36 Estimated GFR (MDRD) > 60.0 ml/min 04/12/19 20:36 Glucose 122 mg/dL (74-106) H 04/12/19 20:36 Calcium 9.2 mg/dL (8.5-10.1) 04/12/19 20:36 Total Bilirubin 0.3 mg/dL (0.2-1.0) 04/12/19 20:36 AST 32 IU/L (15-37) 04/12/19 20:36 ALT 41 IU/L (14-63) 04/12/19 20:36 Alkaline Phosphatase 81 U/L (46-116) 04/12/19 20:36 Total Protein 7.3 g/dL (6.4-8.2) 04/12/19 20:36 Albumin 3.9 g/dL (3.4-5.0) 04/12/19 20:36 Globulin 3.4 g/dL (2.6-4.0) 04/12/19 20:36 Albumin/Globulin Ratio 1.1 (0.9-1.6) 04/12/19 20:36 - Allergies Allergies/Adverse Reactions: Allergies Allergy/AdvReac Type Severity Reaction Status Date / Time No Known Allergies Allergy Verified 11/03/17 19:35 - Acknowledgements Anesthesia Type Planned: General Anesthesia Pt an Appropriate Candidate for the Planned Anesthesia: Yes Alternatives and Risks of Anesthesia Discussed w Pt/Guardian: Yes Pt/Guardian Understands and Agrees with Anesthesia Plan: Yes PreAnesthesia Questionnaire - Past Health History Medical/Surgical History: Denies Medical/Surgical History Cardiovascular History: Reports: Hypertension Gastrointestinal History: Reports: Other (See Below) - Infectious Disease History Infectious Disease History: Reports: Chicken Pox - Past Surgical History Head Surgeries/Procedures: Reports: Other (See Below) HEENT Surgical History: Reports: Naso-Sinus Surgery, Tonsillectomy - SUBSTANCE USE Smoking Status *Q: Never Smoker Second Hand Smoke Exposure: No Recreational Drug Use History: No - HOME MEDS Home Medications: Home Meds Pantoprazole Sodium 40 mg PO DAILY #30 tablet 04/12/19 [Rx] - CURRENT (IN HOUSE) MEDS Current Meds: Current Medications Lactated Ringer's (Ringers, Lactated) 1,000 mls @ 125 mls/hr IV ASDIRECTED JOSHUA Last Admin: 04/12/19 20:45 Dose: 125 mls/hr Sodium Chloride (Saline Flush) 10 ml FLUSH ASDIRECTED PRN PRN Reason: Keep Vein Open Sodium Chloride (Saline Flush) 2.5 ml FLUSH ASDIRECTED PRN PRN Reason: Keep Vein Open Sodium Chloride (Saline Flush) 10 ml FLUSH ASDIRECTED PRN PRN Reason: Keep Vein Open Sodium Chloride (Saline Flush) 2.5 ml FLUSH ASDIRECTED PRN PRN Reason: Keep Vein Open Sodium Chloride (Normal Saline) 10 ml IV ASDIRECTED PRN PRN Reason: IV Use Discontinued Medications Fentanyl (Sublimaze) Confirm Administered Dose 100 mcg .ROUTE .STK-MED ONE Stop: 04/12/19 21:14 Glucagon (Glucagen) 1 mg IVPUSH ONETIME ONE Stop: 04/12/19 20:19 Last Admin: 04/12/19 20:43 Dose: Not Given Lidocaine HCl (Xylocaine 2%) Confirm Administered Dose 100 mg .ROUTE .STK-MED ONE Stop: 04/12/19 21:13 Propofol (Diprivan 20 Ml) Confirm Administered Dose 200 mg .ROUTE .STK-MED ONE Stop: 04/12/19 21:14 Rocuronium [place] (Zemuron) Confirm Administered Dose 100 mg .ROUTE .STK-MED ONE Stop: 04/12/19 21:13 Succinylcholine Chloride (Succinylcholine Chloride) Confirm Administered Dose 200 mg .ROUTE .STK-MED ONE Stop: 04/12/19 21:13
--- NOTE | 2019-04-12 22:15 | PCM.POSTAN ---
POST ANESTHESIA ASSESSMENT - MENTAL STATUS Mental Status: Alert, Oriented - VITAL SIGNS Vital Signs: Last Vital Signs Temp 36.9 C 04/12/19 21:58 Pulse 77 04/12/19 22:08 Resp 19 04/12/19 22:08 BP 134/88 04/12/19 22:08 Pulse Ox 95 04/12/19 22:08 - RESPIRATORY Respiratory Status: Respiratory Rate WNL, Airway Patent, O2 Saturation Stable - CARDIOVASCULAR CV Status: Pulse Rate WNL, Blood Pressure Stable - GASTROINTESTINAL GI Status: No Symptoms - PAIN Pain Score: 0 - POST OP HYDRATION Hydration Status: Adequate & Stable - OBSERVATIONS Free Text/Narrative:: Routine recovery in PACU
--- NOTE | 2019-04-12 23:53 | OR ---
SURGEON: RUBY CARLSON MD DATE OF PROCEDURE: 04/12/2019 PREOPERATIVE DIAGNOSIS: Food bolus impaction. POSTOPERATIVE DIAGNOSES: 1. Food bolus impaction. 2. Esophagitis. 3. Esophageal stricture. PROCEDURE PERFORMED: Esophagogastroduodenoscopy with food bolus disimpaction. PRIMARY SURGEON: Ruby Carlson MD. ANESTHESIA: General endotracheal anesthesia. FLUIDS: 400. INSTRUMENT USED: Olympus endoscope. EXTENT OF THE EXAM: To the stomach. LIMITATIONS: Food in stomach. COMPLICATIONS: None. INDICATIONS: The patient is a 43-year-old male with a past medical history significant for GERD with 2 previous food bolus impactions of his esophagus. He was eating steak tonight when he felt the food got stuck. He was unable to swallow saliva. Given his history, the decision was made to proceed to the operating room to perform a diagnostic EGD with food bolus disimpaction. I explained the procedure, expected perioperative course, and risks including bleeding, infection, or damage to surrounding structures. The patient verbalized understanding and wishes to proceed. PROCEDURE IN DETAIL: The patient was brought into the OR and placed on the OR table in supine position. A time-out was completed verifying the patient's name, age, date of , allergies, and procedure to be performed. General endotracheal anesthesia was induced. A bite block was placed in the patient's mouth. A well- lubricated endoscope was placed in the patient's mouth and advanced into the esophagus under direct visualization. Upon reaching the GE junction, a large piece of steak was noted. I attempted to pass this into the stomach with gentle pulsion, however, this was unsuccessful. A [place] grasper was brought into the field. It was used to grasp the piece of meat and remove it. This was done with 1 pass. The EGD was then placed back into the mouth and advanced under direct visualization to the level of the stomach. The stomach had food particles in it, and due to this, I was unable to pass it into the duodenum. A limited exam of the gastric mucosa showed no signs of ulceration or inflammation. The scope was brought to the GE junction. There appears to be a mild stricture associated with esophagitis at this level, and several photographs were taken. The distal esophageal mucosa had no signs of perforation or ulceration from the food bolus impaction. The scope was removed and the procedure terminated. The patient tolerated the procedure well and was taken to the PACU in stable condition. ENDOSCOPIC DIAGNOSES: 1. Food bolus impaction. 2. Esophagitis. 3. Esophageal stricture. RECOMMENDATIONS: We will start the patient on Protonix for 1 month and have a followup in clinic in 2 weeks. NEETA GONZALEZ /[id number]
[2019-04-13 00:01] VITALS: BP 143/87
--- NOTE | 2019-04-13 07:36 | PCM48HPAN ---
Post Anesthesia Note - EVALUATION WITHIN 48HRS OF ANESTHETIC Vital Signs in Normal Range: Yes Patient Participated in Evaluation: Yes Respiratory Function Stable: Yes Airway Patent: Yes Cardiovascular Function Stable: Yes Hydration Status Stable: Yes Pain Control Satisfactory: Yes Nausea and Vomiting Control Satisfactory: Yes Mental Status Recovered: Yes Vital Signs: Last Vital Signs Temp 37.0 C 04/12/19 22:45 Pulse 71 04/12/19 23:55 Resp 16 04/12/19 23:55 BP 143/87 H 04/12/19 23:55 Pulse Ox 93 L 04/12/19 23:55
== END 2019-04-12 23:55 | disposition home or self-care (01) ==
LOC: MW.ED 19:54 → MW.SDS 20:45
PROVIDERS: ATTEND Surgery
DX: T18.128A Food in esophagus causing other injury, initial encounter (principal); K22.2 Esophageal obstruction; K21.0 Gastro-esophageal reflux disease with esophagitis; I10 Essential (primary) hypertension
CPT/HCPCS: 36415; 43247; 80053; 85025; 96360; 99284; J0330; J2001; J2704; J3010; J7120; 00731

== ENCOUNTER → 2019-08-14 | Day surgery (SDC) | payer BC ==
[~2019-08-14] MED LIST: Acetaminophen/oxyCODONE 325-5 MG Tab PO PRN; Glucagon,Human Recombinant 1 MG Vial IVPUSH ONE; Lactated Ringers 1,000 ML IV SCH; Lidocaine 2% 5 ML SDV ONE; Midazolam 1 MG/ML 2 ML SDV ONE; Ondansetron 4 MG/2 ML SDV ONE; Propofol 200 MG/20 ML SDV ONE; Rocuronium 100 MG/10 ML Syringe ONE; fentaNYL 250 MCG/5 ML SDV ONE
--- NOTE | 2019-08-14 20:19 | EDM.PDOC ---
ED HPI GENERAL MEDICAL PROBLEM - General Chief Complaint: ENT Problem Stated Complaint: FOOD STUCK IN THROAT Time Seen by Provider: 08/14/19 20:12 Source of Information: Reports: Patient History Limitations: Reports: No Limitations - History of Present Illness INITIAL COMMENTS - FREE TEXT/NARRATIVE: HISTORY AND PHYSICAL: History of present illness: Patient is a 44-year-old male who presents to the emergency room with complaints of an esophageal food bolus which started approximately one hour prior to arrival. Patient states he had been eating earlier in the day but have not formally ate a big meal. He states he took a bite of meat and felt it become lodged in his throat. He has been coughing vigorously and taking fluids trying to get the food bolus up, states he is unsuccessful. He did have an EGD done March 2019. Denies any difficulty breathing although states he cannot swallow saliva or any liquids. Prior to this episode, states he felt well and had no systemic complaints. Review of systems: As per history of present illness and below otherwise all systems reviewed and negative. Past medical history: As per history of present illness and as reviewed below otherwise noncontributory. Surgical history: As per history of present illness and as reviewed below otherwise noncontributory. Social history: See social history for further information Family history: As per history of present illness and as reviewed below otherwise noncontributory. Physical exam: General: Well-developed and well nourished 44-year-old male. Alert and oriented. Nontoxic appearing and in no acute distress. HEENT: Atraumatic, normocephalic, pupils equal and reactive bilaterally, negative for conjunctival pallor or scleral icterus, mucous membranes moist, trachea midline. No trismus noted. No meningeal signs. No hot potato voice noted. Lungs: Clear to auscultation, breath sounds equal bilaterally, chest nontender. No work of breathing. Heart: S1S2, regular rate and rhythm without overt murmur Abdomen: Soft, nondistended, nontender. Negative for masses or costovertebral tenderness. Pelvis: Stable nontender. Skin: Intact, warm, dry. No lesions or rashes noted. Extremities: Atraumatic, moves all extremities per self without difficulty or deficits, negative for cords or calf pain. Neurovascular unremarkable. Neuro: Awake, alert, oriented. Cranial nerves II through XII unremarkable. Cerebellum unremarkable. Motor and sensory unremarkable throughout. Exam nonfocal. Notes: Physical exam is within normal limits. He does have an emesis bag at his bedside as he is not able to swallow his saliva. He is able to speak in full sentences and breathe without any difficulty. Vital signs are stable with clear lung sounds. Dr aGbriel was consulted on this case. He is here with patient, will take him back to the OR. Patient's VSS. Diagnostics: None Therapeutics: Glucagon, LR Impression: Esophageal FB Plan: To OR with Dr Gabriel Definitive disposition and diagnosis as appropriate pending reevaluation and review of above. - Related Data Allergies Allergy/AdvReac Type Severity Reaction Status Date / Time No Known Allergies Allergy Verified 11/03/17 19:35 Home Meds: Home Meds Pantoprazole Sodium 40 mg PO DAILY #30 tablet. 04/12/19 [Rx] Past Medical History - Past Health History Medical/Surgical History: Denies Medical/Surgical History Cardiovascular History: Reports: Hypertension Gastrointestinal History: Reports: Other (See Below) - Infectious Disease History Infectious Disease History: Reports: Chicken Pox - Past Surgical History Head Surgeries/Procedures: Reports: Other (See Below) HEENT Surgical History: Reports: Naso-Sinus Surgery, Tonsillectomy Social & Family History - Family History Family Medical History: Noncontributory - Caffeine Use Caffeine Use: Reports: None ED ROS ENT - Review of Systems Review Of Systems: Comprehensive ROS is negative, except as noted in HPI. ED EXAM, ENT - Physical Exam Exam: See Below (See dictation) Course - Vital Signs Last Recorded V/S: Last Vital Signs Temp 96.7 F 08/14/19 20:00 Pulse 94 08/14/19 20:00 Resp 18 08/14/19 20:00 BP 143/104 H 08/14/19 20:00 Pulse Ox 94 L 08/14/19 20:00 - Orders/Labs/Meds Orders: Active Orders 24 hr Category Date Time Status Chest 2V [CR] Stat Exams 08/14/19 20:12 Stop Req Lactated Ringers [Ringers, Lactated] 1,000 ml Med 08/14/19 20:15 Active IV ASDIRECTED Medication Orders Lactated Ringer's (Ringers, Lactated) 1,000 mls @ 150 mls/hr IV ASDIRECTED JOSHUA Last Admin: 08/14/19 20:40 Dose: 150 mls/hr Meds: Medications Generic Name Dose Route Start Last Admin Trade Name Tito PRN Reason Stop Dose Admin Lactated Ringer's 1,000 mls @ 150 mls/hr 08/14/19 20:15 08/14/19 20:40 Ringers, Lactated IV 150 mls/hr ASDIRECTED JOSHUA Administration Discontinued Medications Generic Name Dose Route Start Last Admin Trade Name Tito PRN Reason Stop Dose Admin Glucagon 1 mg 08/14/19 20:12 08/14/19 20:41 Glucagen IVPUSH 08/14/19 20:13 1 mg ONETIME ONE Administration Departure - Departure Time of Disposition: 20:52 Disposition: Still A Patient 30 Clinical Impression: Esophageal foreign body Qualifiers: Encounter type: initial encounter Qualified Code(s): T18.108A - Unspecified foreign body in esophagus causing other injury, initial encounter - Discharge Information Referrals: PCP,Unobtain [Primary Care Provider] - Forms: ED Department Discharge Sepsis Event Note - Evaluation Sepsis Screening Result: No Definite Risk - Focused Exam Vital Signs: Vital Signs Temp Pulse Resp BP Pulse Ox 08/14/19 20:00 96.7 F 94 18 143/104 H 94 L Date Exam was Performed: 08/14/19 Time Exam was Performed: 20:51 - My Orders Last 24 Hours: My Active Orders 08/14/19 20:12 Chest 2V [CR] Stat 08/14/19 20:15 Lactated Ringers [Ringers, Lactated] 1,000 ml IV ASDIRECTED - Assessment/Plan Last 24 Hours: My Active Orders 08/14/19 20:12 Chest 2V [CR] Stat 08/14/19 20:15 Lactated Ringers [Ringers, Lactated] 1,000 ml IV ASDIRECTED
--- NOTE | 2019-08-14 21:07 | PCM.SN ---
- Free Text/Narrative Note: pt seen, chart reviewed; proceed w egd w fb extraction, rb dw pt re bleeding/ infection/perforation, pt concured and proceed; [id number]
--- NOTE | 2019-08-14 21:08 | PCM.PREANE ---
Preanesthetic Assessment - Anesthesia/Transfusion/Family Hx Anesthesia History: Prior Anesthesia Without Reaction Family History of Anesthesia Reaction: No Transfusion History: No Prior Transfusion(s) Intubation History: History of Difficulty Intubation - Review of Systems General: No Symptoms Pulmonary: No Symptoms Cardiovascular: No Symptoms Gastrointestinal: Difficulty Swallowing Neurological: No Symptoms Other: Reports: None - Physical Assessment NPO Status Date: 08/14/19 NPO Status Time: 18:00 Vital Signs: Last Vital Signs Temp 96.7 F 08/14/19 20:00 Pulse 94 08/14/19 20:00 Resp 18 08/14/19 20:00 BP 143/104 H 08/14/19 20:00 Pulse Ox 94 L 08/14/19 20:00 Height: 5 ft 8 in Weight: 92 kg ASA Class: 2E Mental Status: Alert & Oriented x3 Airway Class: Mallampati = 2 Dentition: Reports: Normal Dentition Thyro-Mental Finger Breadths: 3 Mouth Opening Finger Breadths: 3 ROM/Head Extension: Full Lungs: Clear to Auscultation, Normal Respiratory Effort Cardiovascular: Regular Rate, Regular Rhythm - Allergies Allergies/Adverse Reactions: Allergies Allergy/AdvReac Type Severity Reaction Status Date / Time No Known Allergies Allergy Verified 11/03/17 19:35 - Acknowledgements Anesthesia Type Planned: General Anesthesia Pt an Appropriate Candidate for the Planned Anesthesia: Yes Alternatives and Risks of Anesthesia Discussed w Pt/Guardian: Yes Pt/Guardian Understands and Agrees with Anesthesia Plan: Yes PreAnesthesia Questionnaire - Past Health History Medical/Surgical History: Denies Medical/Surgical History HEENT History: Reports: None Cardiovascular History: Reports: Hypertension Respiratory History: Reports: None Gastrointestinal History: Reports: Other (See Below) Genitourinary History: Reports: None Musculoskeletal History: Reports: None Neurological History: Reports: None Psychiatric History: Reports: None Endocrine/Metabolic History: Reports: Obesity/BMI 30+ Hematologic History: Reports: None Immunologic History: Reports: None Oncologic (Cancer) History: Reports: None Dermatologic History: Reports: None - Infectious Disease History Infectious Disease History: Reports: Chicken Pox - Past Surgical History Head Surgeries/Procedures: Reports: Other (See Below) HEENT Surgical History: Reports: Naso-Sinus Surgery, Tonsillectomy - SUBSTANCE USE Smoking Status *Q: Never Smoker Recreational Drug Use History: No - HOME MEDS Home Medications: Home Meds Pantoprazole Sodium 40 mg PO DAILY #30 tablet. 04/12/19 [Rx] - CURRENT (IN HOUSE) MEDS Current Meds: Current Medications Lactated Ringer's (Ringers, Lactated) 1,000 mls @ 150 mls/hr IV ASDIRECTED [facility] Last Admin: 08/14/19 20:40 Dose: 150 mls/hr Discontinued Medications Glucagon (Glucagen) 1 mg IVPUSH ONETIME ONE Stop: 08/14/19 20:13 Last Admin: 08/14/19 20:41 Dose: 1 mg
--- NOTE | 2019-08-14 21:30 | CR ---
INDICATION: steak stuck in throat. pre-op TECHNIQUE: Chest 2 views. COMPARISON: None. FINDINGS: Cardiovascular and mediastinum: Heart size and vasculature are normal in caliber and appearance. Mediastinum is within normal limits. Lungs and pleural spaces: Lungs are clear. No sign of infiltrate or mass. No sign of pleural effusion. No pneumothorax. Bones and soft tissues: No significant findings. IMPRESSION: Unremarkable chest. No radio-opaque foreign bodies identified. Dictated by: John Roca MD @ 08/14/2019 21:29:32 (Electronically Signed)
--- NOTE | 2019-08-14 21:48 | CONS ---
DATE OF CONSULTATION: 08/14/2019 DATE OF : 1975 PRIMARY CARE PHYSICIAN: Unobtain PCP HISTORY OF PRESENT ILLNESS: The patient is a 44-year-old gentleman, who had a history of food stuck and undergone EGD retraction 4 times in the past, last time was 4 months ago by my partner, Dr. Carlson, and this time, the patient had food stuck in about 45 minute, went to the emergency room and sought help complaining cannot swallow his saliva. PAST MEDICAL HISTORY: Significant for no diabetes, [place], CVA, or hypertension. PAST SURGICAL HISTORY: Gastroscopy x4 with 4 foreign body extraction. ALLERGIES: Please refer to nursing for details. MEDICATION: Please refer to nursing for details. PHYSICAL EXAMINATION: GENERAL: A very pleasant young man, smiled to the doctor kindly, related that he is going to have some EGD diagnosis with [facility] a few weeks later, but at this time, stuck again. FAMILY HISTORY: Noncontributory. PHYSICAL EXAMINATION: GENERAL: A very pleasant man, in no acute distress. HEENT: Normocephalic, atraumatic. Sclerae anicteric. LUNGS: Clear to auscultation. HEART: Regular rate and rhythm. ABDOMEN: Soft, nondistended. No pulsating tender midline abdominal structure. Nontender. IMPRESSION: Another episode of frequent episode of food stuck, proceed with EGD and foreign body extraction. Risks and benefits discussed with the patient including bleeding, infection, perforation, and sore throat and postop course. The patient concurred to proceed as planned. As always, thank you for kind referral. JALEN GONZALEZ /[id number] YAW
--- NOTE | 2019-08-14 21:55 | PCM.OPNOTE ---
- General Post-Op/Procedure Note Date of Surgery/Procedure: 08/14/19 Operative Procedure(s): egd w fb extraction Findings: food stuck, retrieved; [id number] Pre Op Diagnosis: food stuck Post-Op Diagnosis: Same Anesthesia Technique: General ET Tube Primary Surgeon: Romulo Gabriel Complications: None Condition: Good
--- NOTE | 2019-08-14 21:57 | PCM.SN ---
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
--- NOTE | 2019-08-14 22:03 | PCM.POSTAN ---
POST ANESTHESIA ASSESSMENT - MENTAL STATUS Mental Status: Alert, Oriented - VITAL SIGNS Vital Signs: Last Vital Signs Temp 98.2 F 08/14/19 21:51 Pulse 101 H 08/14/19 22:01 Resp 13 08/14/19 22:01 BP 139/83 08/14/19 22:01 Pulse Ox 94 L 08/14/19 22:01 - RESPIRATORY Respiratory Status: Respiratory Rate WNL, Airway Patent, O2 Saturation Stable, Supplemental Oxygen - CARDIOVASCULAR CV Status: Pulse Rate WNL, Blood Pressure Stable - GASTROINTESTINAL GI Status: No Symptoms - PAIN Pain Score: 0 - POST OP HYDRATION Hydration Status: Adequate & Stable
--- NOTE | 2019-08-14 22:08 | PCM48HPAN ---
Post Anesthesia Note - EVALUATION WITHIN 48HRS OF ANESTHETIC Vital Signs in Normal Range: Yes Patient Participated in Evaluation: Yes Respiratory Function Stable: Yes Airway Patent: Yes Cardiovascular Function Stable: Yes Hydration Status Stable: Yes Pain Control Satisfactory: Yes Nausea and Vomiting Control Satisfactory: Yes Mental Status Recovered: Yes Vital Signs: Last Vital Signs Temp 98.2 F 08/14/19 21:51 Pulse 91 08/14/19 22:06 Resp 15 08/14/19 22:06 BP 134/77 08/14/19 22:06 Pulse Ox 94 L 08/14/19 22:06
[2019-08-15 01:10] VITALS: BP 143/81; PULSE 72
--- NOTE | 2019-08-16 07:54 | OR ---
SURGEON: Romulo Gabriel MD DATE OF PROCEDURE: 08/14/2019 PREOPERATIVE DIAGNOSIS: Food stuck. POSTOPERATIVE DIAGNOSIS: Food stuck. PROCEDURE PERFORMED: EGD with foreign body extraction. COMPLICATIONS: None. FINDING: Several pieces of large meat-like structure was stuck at the GE junction and cannot push through, it was retrieved through the mouth. DESCRIPTION OF PROCEDURE: The patient was taken to the operating room and placed in the supine position. Upon induction of general endotracheal anesthesia, the patient's endoscopy was then proceeded. A time-out was being called, patient identified, procedure identified, procedure then started. A well-lubricated Olympus EGD scope was gently inserted through the oropharynx and gently advanced to the GE junction at 40. A large piece of meat was stuck over there, and I attempted to push it through, failed, and using a Tripod retriever, I was able to hold onto the piece of meat, with 1 pass the whole piece of meat was able to be brought out to the oropharynx; however, with the ET tube in position, the meat-like stuff broke into pieces and required 6 times to go in and out, in order to completely retrieve the piece of meat. Then the scope passed into the stomach and failed to observe any other examination because of the large amount of food in the stomach, and although able to go through the duodenum, but only half of it and not to the second portion of duodenum because of the food, and we could not really look at anything. Then looked at the GE junction area, it was a little bit inflamed and probably due to the food impaction and probably inflammation, given esophagitis with subsequent result in maybe possible mild stricture. The patient was awakened, extubated, and transferred to recovery in hemodynamically stable condition. During the whole process no blood or ulcers observed. The patient should be on liquid diet for the next 48 hours because of inflammation, and should follow up in my office in 2 to 3 weeks. Thank you for the kind referral. JALEN / CARLOS /[id number]
== END | disposition home or self-care (01) ==
LOC: MW.ED 20:00 → MW.SDS 20:59
PROVIDERS: ATTEND Surgery
DX: T18.128A Food in esophagus causing other injury, initial encounter (principal); I10 Essential (primary) hypertension; E66.9 Obesity, unspecified; X58.XXXA Exposure to other specified factors, initial encounter; Z68.30 Body mass index [BMI] 30.0-30.9, adult
CPT/HCPCS: 43247; 71046; J0330; J1610; J2001; J2250; J2405; J2704; J3010; J7120

== ENCOUNTER 2019-12-11 10:14 | Emergency (ER) | payer BC ==
[2019-12-11] MEDS ORDERED: Diphtheria,Pertussis(Acell),Tetanus Vaccine 0.5 ML Syringe IM ONE (10:37)
--- NOTE | 2019-12-11 10:38 | EDM.PDOC ---
ED HPI GENERAL MEDICAL PROBLEM - General Chief Complaint: Laceration Stated Complaint: STITCHES Time Seen by Provider: 12/11/19 10:37 Source of Information: Reports: Patient History Limitations: Reports: No Limitations - History of Present Illness INITIAL COMMENTS - FREE TEXT/NARRATIVE: HISTORY AND PHYSICAL: History of present illness: Patient is a 44-year-old male presents to the ED with finger laceration. Patient states he caught his finger in a rotary surface grinder about 1 hour prior to arrival to the ED. He is uncertain of last tetanus. Review of systems: As per history of present illness and below otherwise all systems reviewed and negative. Past medical history: As per history of present illness and as reviewed below otherwise noncontributory. Surgical history: As per history of present illness and as reviewed below otherwise noncontributory. Social history: No reported history of drug or alcohol abuse. Family history: As per history of present illness and as reviewed below otherwise noncontributory. Physical exam: General: Patient sitting comfortably in no acute distress and nontoxic appearing HEENT: Atraumatic, normocephalic, pupils reactive, negative for conjunctival pallor or scleral icterus, mucous membranes moist, throat clear, neck supple, nontender, trachea midline. No meningeal signs. Extremities: Two superficial lacerations to the distal pad of the right pointer finger measuring 3mm and 5mm. Atraumatic, negative for cords or calf pain. Neurovascular unremarkable. Neuro: Awake, alert, oriented. Cranial nerves II through XII unremarkable. Cerebellum unremarkable. Motor and sensory unremarkable throughout. Exam nonfocal. Notes: Diagnostics: none Therapeutics: tdap Prescriptions: none Impression: Finger laceration Plan: Keep the area clean and dry as instructed Follow up with primary care provider Return to ED as needed as discussed Definitive disposition and diagnosis as appropriate pending reevaluation and review of above. Right index finger Pain Score (Numeric/FACES): 1 - Related Data Allergies Allergy/AdvReac Type Severity Reaction Status Date / Time No Known Allergies Allergy Verified 12/11/19 10:33 Home Meds: Home Meds . [No Known Home Meds] 12/11/19 [History] Past Medical History - Past Health History Medical/Surgical History: Denies Medical/Surgical History HEENT History: Reports: None Cardiovascular History: Reports: Hypertension Respiratory History: Reports: None Gastrointestinal History: Reports: Other (See Below) Genitourinary History: Reports: None Musculoskeletal History: Reports: None Neurological History: Reports: None Psychiatric History: Reports: None Endocrine/Metabolic History: Reports: Obesity/BMI 30+ Hematologic History: Reports: None Immunologic History: Reports: None Oncologic (Cancer) History: Reports: None Dermatologic History: Reports: None - Infectious Disease History Infectious Disease History: Reports: Chicken Pox - Past Surgical History Head Surgeries/Procedures: Reports: Other (See Below) HEENT Surgical History: Reports: Naso-Sinus Surgery, Tonsillectomy Social & Family History - Family History Family Medical History: Noncontributory - Caffeine Use Caffeine Use: Reports: None ED ROS GENERAL - Review of Systems Review Of Systems: Comprehensive ROS is negative, except as noted in HPI. ED EXAM, SKIN/RASH Exam: See Below (see dictation) ED SKIN PROCEDURES - Laceration/Wound Repair Right Digit - 2nd (Index) Appearance: Superficial, Irregular, Clean Distal NVT: Neuro & Vascular Intact, No Tendon Injury Skin Prep: Saline Saline Irrigation (cc's): 250 Exploration/Debridement/Repair: Wound Explored, In a Bloodless Field, Explored to Base Closed with: Dermabond Lac/Wound length In cm: 0.5 Course - Vital Signs Last Recorded V/S: Last Vital Signs Temp 97.2 F 12/11/19 10:20 Pulse 97 12/11/19 10:20 Resp 16 12/11/19 10:20 BP 135/93 H 12/11/19 10:20 Pulse Ox 97 12/11/19 10:20 - Orders/Labs/Meds Orders: Active Orders 24 hr Category Date Time Status Vaccines to be Administered [RC] PER UNIT ROUTINE Care 12/11/19 10:37 Ordered Meds: Medications Discontinued Medications Generic Name Dose Route Start Last Admin Trade Name Freq PRN Reason Stop Dose Admin Diphtheria/Tetanus/Acell Pertussis 0.5 ml 12/11/19 10:37 12/11/19 11:13 Adacel IM 12/11/19 10:38 0.5 ml .ONCE ONE Administration Lidocaine HCl 5 ml 12/11/19 10:36 12/11/19 11:14 Xylocaine-Mpf 1% INJECT 12/11/19 10:37 Not Given ONETIME ONE Octyl Cyanoacrylate 1 applic 12/11/19 10:55 12/11/19 11:13 Dermabond Advance TOP 12/11/19 10:56 1 applic ONETIME ONE Administration Departure - Departure Time of Disposition: 11:20 Disposition: Home, Self-Care 01 Condition: Good Clinical Impression: Laceration - Discharge Information Instructions: Laceration Care, Adult, [id number] Referrals: Jakob Boss MD [Primary Care Provider] - Forms: ED Department Discharge Additional Instructions: The following information is given to patients seen in the emergency department who are being discharged to home. This information is to outline your options for follow-up care. We provide all patients seen in our emergency department with a follow-up referral. The need for follow-up, as well as the timing and circumstances, are variable depending upon the specifics of your emergency department visit. If you don't have a primary care physician on staff, we will provide you with a referral. We always advise you to contact your personal physician following an emergency department visit to inform them of the circumstance of the visit and for follow-up with them and/or the need for any referrals to a consulting specialist. The emergency department will also refer you to a specialist when appropriate. This referral assures that you have the opportunity for follow-up care with a specialist. All of these measure are taken in an effort to provide you with optimal care, which includes your follow-up. Under all circumstances we always encourage you to contact your private physician who remains a resource for coordinating your care. When calling for follow-up care, please make the office aware that this follow-up is from your recent emergency room visit. If for any reason you are refused follow-up, please contact the [facility] at and asked to speak to the emergency department charge nurse. [facility] [address] [place] [id number] [address] [address] Keep the area clean and dry as instructed Follow up with primary care provider Return to ED as needed as discussed Sepsis Event Note - Evaluation Sepsis Screening Result: No Definite Risk - Focused Exam Vital Signs: Vital Signs Temp Pulse Resp BP Pulse Ox 12/11/19 10:20 97.2 F 97 16 135/93 H 97 Date Exam was Performed: 12/11/19 Time Exam was Performed: 11:38 - My Orders Last 24 Hours: My Active Orders 12/11/19 10:37 Vaccines to be Administered [RC] PER UNIT ROUTINE - Assessment/Plan Last 24 Hours: My Active Orders 12/11/19 10:37 Vaccines to be Administered [RC] PER UNIT ROUTINE
[2019-12-11] MEDS ORDERED: Octyl 2-Cyanoacrylate 1 Tube TOP ONE (10:55)
[2019-12-11 12:04] VITALS: BP 137/97; PULSE 73
== END 2019-12-11 12:05 | disposition home or self-care (01) ==
LOC: MW.ED 10:14
DX: S61.210A Laceration without foreign body of right index finger without damage to nail, initial encounter (principal); I10 Essential (primary) hypertension; E66.9 Obesity, unspecified; Z68.29 Body mass index [BMI] 29.0-29.9, adult; Z23 Encounter for immunization; W23.0XXA Caught, crushed, jammed, or pinched between moving objects, initial encounter
CPT/HCPCS: 12001; 90471; 90715; 99282; A9270

== ENCOUNTER 2022-03-23 15:12 | Emergency (ER) | payer BC ==
[2022-03-23] MEDS ORDERED: Sodium Chloride 0.9% 1,000 ML IV ONE (15:20)
[2022-03-23] MEDS ORDERED: Iopamidol 755 MG/ML 500 ML Multipack Bottle IVPUSH STA (15:40)
[2022-03-23 16:14] LABS: BLOOD UREA NITROGEN,BUN 19 mg/dL (7.0-18.0); CARBON DIOXIDE,CO2 26.1 mmol/L (21.0-32.0); CHLORIDE,CL 103 mmol/L (98-107); GLUCOSE RANDOM 107 mg/dL (74-106); POTASSIUM,K 4.5 mmol/L (3.5-5.1); SODIUM,NA 138 mmol/L (136-148)
[2022-03-23 16:20] LABS: ESTIMATED GFR 83 mL/min (>60)
[2022-03-23 17:17] VITALS: BP 161/104; PULSE 66
== END 2022-03-23 17:17 | disposition home or self-care (01) ==
LOC: MW.ED 15:12
DX: R53.1 Weakness (principal); I10 Essential (primary) hypertension; E66.9 Obesity, unspecified; Z68.30 Body mass index [BMI] 30.0-30.9, adult; Z20.822 Contact with and (suspected) exposure to COVID-19
CPT/HCPCS: 36415; 70450; 70496; 70498; 71045; 80053; 82947; 83735; 84484; 85025; 87635; 93005; 96360; 99285; J7030; Q9967; 93010; 99284; U0002

== ENCOUNTER 2023-02-20 16:52 | Day surgery (SDC) | payer BC ==
[2023-02-20] MEDS ORDERED: Dexmedetomidine 200 MCG/2 ML SDV ONE (18:10)
[2023-02-20] MEDS ORDERED: Propofol 200 MG/20 ML SDV ONE (18:10)
[2023-02-20] MEDS ORDERED: fentaNYL 100 MCG/2 ML SDV ONE (18:10)
[2023-02-20] MEDS ORDERED: Dexamethasone 4 MG/ML 5 ML MDV ONE (18:49)
[2023-02-20] MEDS ORDERED: Ondansetron 4 MG/2 ML SDV ONE (18:49)
[2023-02-20] MEDS ORDERED: Sugammadex Sodium 200 MG/2 ML VIAL ONE (18:51)
[2023-02-20 20:53] VITALS: BP 164/86; PULSE 86
== END 2023-02-20 20:27 | disposition home or self-care (01) ==
LOC: MW.ED 16:52 → MW.SDS 18:30 → MW.ED 18:40 → MW.MS 19:41 → MW.SDS 20:27
PROVIDERS: ATTEND Surgery
DX: T18.128A Food in esophagus causing other injury, initial encounter (principal); I10 Essential (primary) hypertension; E66.9 Obesity, unspecified; K22.2 Esophageal obstruction; Z79.899 Other long term (current) drug therapy; Z68.29 Body mass index [BMI] 29.0-29.9, adult
CPT/HCPCS: 43247; J1100; J2405; J2704; J3010; J3490; 99283; 99285

== ENCOUNTER 2023-04-05 06:33 | Day surgery (SDC) | payer BC ==
[~2023-04-05 06:33] MED LIST changes: -Acetaminophen/oxyCODONE 325-5 MG Tab PO PRN; -Glucagon,Human Recombinant 1 MG Vial IVPUSH ONE; -Lidocaine 2% 5 ML SDV ONE; -Midazolam 1 MG/ML 2 ML SDV ONE; -Ondansetron 4 MG/2 ML SDV ONE; -Propofol 200 MG/20 ML SDV ONE; -Rocuronium 100 MG/10 ML Syringe ONE; +Sodium Chloride 0.9% 10 ML Syringe FLUSH PRN; +Sodium Chloride 0.9% 2.5 ML Syringe FLUSH PRN; +Sodium Chloride 0.9% 20 ML SDV IV PRN; -fentaNYL 250 MCG/5 ML SDV ONE
[2023-04-05] MEDS ORDERED: Propofol 200 MG/20 ML SDV ONE ×2 (07:34→08:12)
[2023-04-05] MEDS ORDERED: Lidocaine 2% 5 ML SDV ONE (07:35)
[2023-04-05] MEDS ORDERED: Dexmedetomidine 200 MCG/2 ML SDV ONE (07:37)
[2023-04-05 09:01] VITALS: BP 112/71; PULSE 60
== END 2023-04-05 09:34 | disposition home or self-care (01) ==
LOC: MW.SDS 06:33
PROVIDERS: ATTEND Surgery
DX: K22.2 Esophageal obstruction (principal); K21.00 Gastro-esophageal reflux disease with esophagitis, without bleeding; K44.9 Diaphragmatic hernia without obstruction or gangrene; G47.33 Obstructive sleep apnea (adult) (pediatric); I10 Essential (primary) hypertension; F43.10 Post-traumatic stress disorder, unspecified; Z79.899 Other long term (current) drug therapy
CPT/HCPCS: 43239; 43249; J2704; J7120; 00731; J3490

== ENCOUNTER 2024-03-07 10:01 | Emergency (ER) | payer BC ==
[2024-03-07] MEDS: Lidocaine 1% 5 ML VIAL INJECT ONE (10:31)
[2024-03-07] MEDS ORDERED: Diphtheria,Pertussis(Acell),Tetanus Vaccine 0.5 ML Syringe IM ONE (10:31)
[2024-03-07 11:16] VITALS: BP 134/79; PULSE 87
== END 2024-03-07 11:17 | disposition home or self-care (01) ==
LOC: MW.ED 10:01
DX: S01.312A Laceration without foreign body of left ear, initial encounter (principal); I10 Essential (primary) hypertension; E66.9 Obesity, unspecified; Z75.8 Other problems related to medical facilities and other health care; Z79.899 Other long term (current) drug therapy; Z68.29 Body mass index [BMI] 29.0-29.9, adult; W25.XXXA Contact with sharp glass, initial encounter
CPT/HCPCS: 12011; 99282; 99283; J3490

== ENCOUNTER 2024-05-22 12:34 | Day surgery (SDC) | payer BC ==
[2024-05-22] MEDS ORDERED: fentaNYL 100 MCG/2 ML SDV ONE (13:11)
[2024-05-22] MEDS ORDERED: Propofol 200 MG/20 ML SDV ONE (13:11)
[2024-05-22] MEDS ORDERED: Succinylcholine/Sod PF 100 MG/5 ML SYRINGE IV ONE (13:12)
[2024-05-22] MEDS ORDERED: Sodium Chloride 0.9% 10 ML Syringe FLUSH PRN (13:24)
[2024-05-22] MEDS ORDERED: Sodium Chloride 0.9% 2.5 ML Syringe FLUSH PRN (13:24)
[2024-05-22] MEDS ORDERED: Sodium Chloride 0.9% 20 ML SDV IV PRN (13:24)
[2024-05-22] MEDS ORDERED: Lactated Ringers 1,000 ML IV SCH (13:30)
[2024-05-22] MEDS ORDERED: Dexamethasone 4 MG/ML 5 ML MDV ONE (13:42)
[2024-05-22] MEDS ORDERED: Ondansetron 4 MG/2 ML SDV ONE (13:42)
[2024-05-22] MEDS ORDERED: Ketorolac 30 MG/ML SDV IM ONE (13:51)
[2024-05-22 14:15] VITALS: PULSE 83
[2024-05-22 14:20] VITALS: BP 127/82
== END 2024-05-22 15:40 | disposition home or self-care (01) ==
LOC: MW.ED 12:34 → MW.SDS 13:50
PROVIDERS: ATTEND Surgery
DX: T18.128A Food in esophagus causing other injury, initial encounter (principal); K22.2 Esophageal obstruction; K21.00 Gastro-esophageal reflux disease with esophagitis, without bleeding; K44.9 Diaphragmatic hernia without obstruction or gangrene; I10 Essential (primary) hypertension
CPT/HCPCS: 43247; 99284; J0330; J1100; J1885; J2405; J2704; J3010; 00731; 99285

== ENCOUNTER 2024-05-24 18:13 | Emergency (ER) | payer BC ==
[2024-05-24 19:07] LABS: BASOPHILS ABSOLUTE AUTO 0.05 K/uL (0.00-0.20); BASOPHILS PERCENT AUTO 0.7 % (0.0-1.0); EOSINOPHILS ABSOLUTE AUTO 0.17 K/uL (0.00-0.45); EOSINOPHILS PERCENT AUTO 2.2 % (0.0-6.0); HEMATOCRIT 44.4 % (42.0-52.0); HEMOGLOBIN 14.8 g/dL (14.0-18.0); IMMATURE GRAN ABSOLUTE AUTO 0.02 K/uL (0.00-0.05); IMMATURE GRAN PERCENT AUTO 0.3 % (0.0-0.4); LYMPHOCYTES ABSOLUTE AUTO 3.75 K/uL (1.00-4.80); LYMPHOCYTES PERCENT AUTO 48.8 % (24.0-44.0); MEAN CORPUSCULAR HEMOGLOBIN 28.4 pg (28.0-32.0); MEAN CORPUSCULAR HGB CONC 33.3 g/dL (32.0-36.0); MEAN CORPUSCULAR VOLUME 85.2 fL (83.0-99.0); MEAN PLATELET VOLUME 9.1 fL (9.4-12.4); MONOCYTES PERCENT AUTO 9.1 % (0.0-8.0); NEUTROPHILS ABSOLUTE AUTO 2.99 K/uL (1.80-7.70); NEUTROPHILS PERCENT AUTO 38.9 % (41.0-71.0); PLATELET COUNT,PLT 278 K/uL (150-400); RED BLOOD CELL COUNT 5.21 M/uL (4.52-5.90); WHITE BLOOD CELL COUNT,WBC 7.68 K/uL (3.9-11.3)
[2024-05-24] MEDS: Ketorolac 60 MG/2 ML SDV IM ONE (19:08)
[2024-05-24] MEDS: Orphenadrine 60 MG/2 ML Inj IM ONE (19:08)
[2024-05-24 19:30] LABS: A/G RATIO 1.2 (0.9-1.6); ALBUMIN 3.8 g/dL (3.4-5.0); BILIRUBIN TOTAL 0.3 mg/dL (0.2-1.0); CALCIUM 8.9 mg/dL (8.5-10.1); CARBON DIOXIDE,CO2 28.4 mmol/L (21.0-32.0); CREATININE 1.2 mg/dL (0.8-1.3); EST CRCL DRUG DOSING (CG) 72.04 mL/min; POTASSIUM,K 4.2 mmol/L (3.5-5.1)
[2024-05-24 19:56] LABS: APPEARANCE,URINE CLEAR; BILIRUBIN,URINE NEGATIVE (NEGATIVE); COLOR,URINE YELLOW; GLUCOSE,URINE NEGATIVE (NEGATIVE); KETONES,URINE NEGATIVE (NEGATIVE); LEUKOCYTE ESTERASE,URINE NEGATIVE (NEGATIVE); NITRITE,URINE POSITIVE (NEGATIVE); OCCULT BLOOD,URINE NEGATIVE (NEGATIVE); PROTEIN,URINE NEGATIVE (NEGATIVE); UROBILINOGEN,URINE 0.2 EU/dL (<2.0)
[2024-05-24 20:00] LABS: RBC,URINE NONE SEEN (0-2/HPF); WBC,URINE 0-2 (0-5/HPF)
[2024-05-24 20:01] LABS: BACTERIA,URINE FEW (NEGATIVE); EPITHELIAL CELLS,URINE FEW (NONE-FEW)
[2024-05-24] MEDS: Morphine 4 MG/ML Syringe IVPUSH ONE (20:08)
[2024-05-24 20:41] VITALS: BP 151/91; PULSE 64
== END 2024-05-24 20:44 | disposition home or self-care (01) ==
LOC: MW.ED 18:13
DX: M79.10 Myalgia, unspecified site (principal); I10 Essential (primary) hypertension; E66.9 Obesity, unspecified; Z75.8 Other problems related to medical facilities and other health care; Z68.29 Body mass index [BMI] 29.0-29.9, adult
CPT/HCPCS: 36415; 80053; 81001; 82550; 85025; 87086; 93005; 96372; 96374; 99283; J1885; J2270; J2360; 93010; 99284

== ENCOUNTER 2024-11-15 07:46 | Emergency (ER) | payer BC ==
[2024-11-15] MEDS: Aspirin 81 MG Tab.Chew PO ONE (08:08)
[2024-11-15 08:11] LABS: HEMATOCRIT 46.8 % (42.0-52.0); HEMOGLOBIN 16.1 g/dL (14.0-18.0); MEAN CORPUSCULAR HEMOGLOBIN 29.2 pg (28.0-32.0); MEAN CORPUSCULAR HGB CONC 34.4 g/dL (32.0-36.0); MEAN CORPUSCULAR VOLUME 84.8 fL (83.0-99.0); PLATELET COUNT,PLT 268 K/uL (150-400); RED BLOOD CELL COUNT 5.52 M/uL (4.52-5.90)
[2024-11-15] MEDS: Sodium Chloride 0.9% 1,000 ML IV ONE (08:11)
[2024-11-15] MEDS: Aspirin 81 MG Tab.Chew ONE (08:11)
[2024-11-15 08:44] LABS: A/G RATIO 1.1 (0.9-1.6); ALANINE AMINOTRANSFERASE,ALT 34 IU/L (14-63); ALBUMIN 4.2 g/dL (3.4-5.0); ALKALINE PHOSPHATASE 66 U/L (46-116); ASPARTATE AMNIOTRANSFERASE,AST 2 IU/L (15-37); BILIRUBIN TOTAL 0.4 mg/dL (0.2-1.0); BLOOD UREA NITROGEN,BUN 16 mg/dL (7.0-18.0); CALCIUM 9.6 mg/dL (8.5-10.1); CARBON DIOXIDE,CO2 23.5 mmol/L (21.0-32.0); CHLORIDE,CL 104 mmol/L (98-107); CREATININE 1.2 mg/dL (0.8-1.3); EST CRCL DRUG DOSING (CG) 71.25 mL/min; ESTIMATED GFR 74 mL/min (>60); GLUCOSE RANDOM 114 mg/dL (74-106); LIPASE 39 U/L (16-77); PROTEIN TOTAL,TP 7.9 g/dL (6.4-8.2); SODIUM,NA 141 mmol/L (136-148)
[2024-11-15] MEDS: Iopamidol 755 MG/ML 500 ML Multipack Bottle IVPUSH STA (09:33)
[2024-11-15] MEDS ORDERED: Metoprolol Tartrate 5 MG in Sodium Chloride 0.9% 50 ML IV ONE ×2 (11:02→11:12)
[2024-11-15] MEDS: cloNIDine 0.1 MG Tab PO ONE (11:11)
[2024-11-15] MEDS: Metoprolol Tartrate 5 MG/5 ML SDV IV ONE (11:19)
[2024-11-15 13:14] VITALS: BP 151/91; PULSE 78
== END 2024-11-15 13:14 | disposition home or self-care (01) ==
LOC: MW.ED 07:46
DX: R07.89 Other chest pain (principal); R07.2 Precordial pain; R91.1 Solitary pulmonary nodule; I10 Essential (primary) hypertension
CPT/HCPCS: 36415; 71045; 71275; 80048; 80076; 83690; 84484; 85027; 85379; 93005; 96361; 96374; 99284; A9270; J3490; J7030; Q9967; 93010

== ENCOUNTER 2025-02-21 09:11 | Day surgery (SDC) | payer BC ==
[~2025-02-21 09:11] MED LIST changes: -Lactated Ringers 1,000 ML IV SCH; -Sodium Chloride 0.9% 20 ML SDV IV PRN
[2025-02-21] MEDS: Lactated Ringers 1,000 ML IV SCH (10:15)
[2025-02-21] MEDS ORDERED: propofoL 500 MG/50 ML 50 ML ONE (10:47)
[2025-02-21 11:45] VITALS: BP 133/94; PULSE 68
== END 2025-02-21 11:55 | disposition home or self-care (01) ==
LOC: MW.SDS 09:11
PROVIDERS: ATTEND Surgery
DX: Z12.11 Encounter for screening for malignant neoplasm of colon (principal); K63.5 Polyp of colon; K20.0 Eosinophilic esophagitis; K44.9 Diaphragmatic hernia without obstruction or gangrene; K22.2 Esophageal obstruction; K21.9 Gastro-esophageal reflux disease without esophagitis; I10 Essential (primary) hypertension; E78.00 Pure hypercholesterolemia, unspecified; E66.9 Obesity, unspecified; Z68.30 Body mass index [BMI] 30.0-30.9, adult; Z79.899 Other long term (current) drug therapy
CPT/HCPCS: 43239; 45380; J2704; J7120; 00813